=== PATIENT | male | born 1940 | race Caucasian/White ===

== ENCOUNTER 2019-06-14 16:56 | Inpatient (IN) | payer MEDICARE, OTHER ==
--- NOTE | 2019-06-14 17:14 | EDM.PDOC ---
ED HPI GENERAL MEDICAL PROBLEM - General Chief Complaint: Fever Stated Complaint: FEVER Time Seen by Provider: 06/14/19 17:13 Source of Information: Reports: Patient History Limitations: Reports: No Limitations - History of Present Illness INITIAL COMMENTS - FREE TEXT/NARRATIVE: 79-year-old male presents the ED with his daughter and granddaughter. 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 Patient has a chronic cough. He was seen yesterday in clinic and started on Zithromax tablets for pneumonia. Rarely has a chronic infiltrate in the left lung and also intermittent problems with infection in the right lower lung for the last 3-4 months. 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 He developed a fever with chills early this morning. Update high fever greater than 100.5 he would need to come to the hospital. On arrival he is definitely febrile at 101.5. He has not taken any Tylenol or Motrin for fever relief today. He states he did eat and drink normally today. No vomiting or diarrhea. No problems voiding. No worsening of edema in his lower extremities. Cough and is bringing up some clear sputum with occasional yellow tinge without any blood. He did have a flu shot this year. O2 sats upon arrival were 85%. 92-94% on 3 L by nasal cannula. Patient will have a septic workup carried out. He will be given Zyvox 600mg IV as soon as blood cultures 2 have been collected. Of note the patient has been on Cipro for 3 weeks prior to starting Zithromax yesterday. He was off antibiotic for 1 week. Apparently before this he was also on a two-week course of Cipro. Onset: Other (On a cough and sputum production for 3-4 months due to T-cell lymphoma causing obstruction of bronchi. He's had recurrent pneumonia primarily in the left lung but also has had problems with right lower lobe pneumonia over the last 3-4 months. He's been on multiple courses of antibiotics. Reverse started today. He was started on Zithromax prophylactically yesterday in clinic. ) Onset Date: 06/14/19 (At onset of fever and chills this morning.) Duration: Hour(s):, Getting Worse Location: Reports: Chest (productive cough. No pleuritic chest pain. Short of breath on minimal exertion.) Quality: Reports: Other Severity: Moderate (Dyspnea) Improves with: Reports: None Worsens with: Reports: Movement Context: Reports: Other (History of chronic pneumonia. 3-4 months due to T-cell lymphoma invading the lungs and bronchi. He has had a recurrent left-sided pneumonia and right lower lobar pneumonia intermittently.). Denies: Activity ( He is worthless trying to walk.), Exercise, Lifting, Sick Contact, Trauma Associated Symptoms: Reports: Cough, cough w sputum, Fever/Chills (Interval 101.5 today.), Malaise, Shortness of Breath, Weakness. Denies: Chest Pain, Diaphoresis (White to slightly yellow tinged sputum), Loss of Appetite, Nausea/ Vomiting, Rash, Seizure Treatments ERP ANALYST: Reports: Other (see below) (Is not taken anything for fever relief.) - Related Data Allergies Allergy/AdvReac Type Severity Reaction Status Date / Time Penicillins Allergy Unknown Rash Verified 06/14/19 17:08 Iodinated Contrast Media Allergy Rash Verified 06/14/19 17:08 potassium Allergy Diarrhea Verified 06/14/19 17:08 Sulfa (Sulfonamide Allergy Rash Verified 06/14/19 17:08 Antibiotics) Home Meds: Home Meds Aspirin 81 mg PO DAILY 06/14/19 [History] Azithromycin [Zithromax] 1 dose PO DAILY 06/14/19 [History] Levothyroxine [Synthroid] 88 mcg PO DAILY 06/14/19 [History] Potassium Gluconate [Potassium] 1 cap PO DAILY 06/14/19 [History] amLODIPine [Norvasc] 1 tab PO DAILY 06/14/19 [History] Past Medical History HEENT History: Reports: Sinusitis (Recurrent and chronic) Cardiovascular History: Reports: Other (See Below) (Dependent edema both lower extremities.) Respiratory History: Reports: Pneumonia, Recurrent, Other (See Below) ( Apparently had a bronchoscopy 2 weeks ago which 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 This was done approximately 3 months ago. States his bowel function is otherwise normal with no diarrhea.) Genitourinary History: Reports: Other (See Below) (Previous prostate cancer 4 years ago removed prostate in [place]. He has a subtotally has been normal. Denies any problems voiding. Occasional dribbles of urine.) Oncologic (Cancer) History: Reports: Lymphoma (He has a T-cell lymphoma for the last 2-1/2 years and has been receiving chemotherapy every 2-3 weeks.), Prostate (Foreign half years ago treated by prostatectomy.) - Infectious Disease History Infectious Disease History: Reports: Other (See Below) (Chronic recurrent pneumonia primarily left lung for the last 3-4 months.) Social & Family History - Tobacco Use Smoking Status *Q: Never Smoker - Living Situation & Occupation Living situation: Reports: Occupation: Retired Social History Comment: Resides in [facility] ROS GENERAL - Review of Systems Review Of Systems: See Below Constitutional: Reports: Fever, Chills, Malaise, Weakness, Fatigue, Night Sweats , Other HEENT: Reports: Sinus Problem (Álvaro of high fever and chills this morning.) Respiratory: Reports: Shortness of Breath ( Restraint age.), Wheezing, Cough, Sputum. Denies: Pleuritic Chest Pain, Hemoptysis Cardiovascular: Reports: Blood Pressure Problem, Dyspnea on Exertion (20 dependent edema both lower extremities. He wears compression stockings daily.), Edema. Denies: Chest Pain (Clear white and mildly yellow tinged.), Claudication , Lightheadedness, Orthopnea Endocrine: Reports: Fatigue ( Reticular today.) GI/Abdominal: Reports: No Symptoms. Denies: Constipation, Nausea, Vomiting : Reports: Frequency, Other (His 2 previous total prostatectomy for cancer of the prostate 4-5 years ago. Surgery carried out by Dr Rodriguez in [place]) Musculoskeletal: Reports: Neck Pain, Back Pain, Joint Pain (E Brandon shoulders at times.) Skin: Reports: Dryness, Other (Both lower extremities. Chronically in venous insufficiency with no ulcer breakdown and legs.) Neurological: Reports: No Symptoms Psychiatric: Reports: No Symptoms Hematologic/Lymphatic: Reports: Anemia, Easy Bruising ED EXAM, SEPSIS - Physical Exam Exam: See Below Exam Limited By: No Limitations (His hearing impaired but understands easily with talking loud.) General Appearance: Alert, Moderate Distress (Toxic at rest 85% room air. 92-94 % on 3 L by nasal cannula.), Other (She is febrile to touch. Temperature recorded at 37.8 Celsius. Heart rate 106 and sinus. Respiratory rate of 25 with BP 140 11/17/03.) Eye Exam: Bilateral Eye: Normal Inspection (Mild blood blepharal l pallor), PERRL Throat/Mouth: Normal Inspection, Normal Lips, Normal Oropharynx Head: Atraumatic, Normocephalic Neck: Normal Inspection, Supple, Non-Tender, Full Range of Motion, Tender Lateral. No: Carotid Bruit, Lymphadenopathy (L), Lymphadenopathy (R) Respiratory/Chest: Respiratory Distress (Kidney at the bedside with hypoxia on room air 85%.), Decreased Breath Sounds (Moderate expiratory wheezes both lung jc. Particularly to the right lung base. Questionable small pleural effusion ), Rhonchi (5 throughout both upper and lower lung jc on the left side both anteriorly and posteriorly. Rhonchi right base of lung as well.), Wheezing. No : Lungs Clear, Pleural Rub, Accessory Muscle Use, Retractions, Splinting Cardiovascular: No Murmur, No Rub, Tachycardia (105/m. Complexes on the monitor. ). No: Normal Peripheral Pulses, No Edema Peripheral Pulses: 0: Posterior Tibial (L), Posterior Tibial (R), Dorsalis Pedis (L), Dorsalis Pedis (R), 2+: Carotid (L), Carotid (R) GI/Abdominal Exam: Normal Bowel Sounds (Pedal pulses are obscured due to significant edema both lower extremities.), Soft, Non-Tender, No Organomegaly ( In particular cannot identify any splenomegaly or hepatomegaly. Is a known history of chronic lymphoma. Has a surgical midline incision from recent laparoscopic assisted colon resection for cancer 4 months ago.) Back: Normal Inspection, Decreased Range of Motion. No: CVA Tenderness (L), CVA Tenderness (R) Extremities: Pedal Edema (Her plus pitting edema both lower extremities slightly worse on the right side as compared to the left. He is wearing bilateral compression stockings.), Other (Evidence post arthritic changes in both knees.) Neurological: Alert, Oriented, CN II-XII Intact, Normal Cognition Psychiatric: Other (Gruff affect. ) Skin: Warm, Dry, Intact, Normal Color, No Rash. No: Rash EKG INTERPRETATION EKG Date: 06/14/19 Time: 17:36 Rhythm: NSR Rate (Beats/Min): 99 (Wide-complex's.) [place]: RAD-Right [place] Deviation P-Wave: Enlarged QRS: Other (Left anterior fascicular block.) ST-T: Normal QT: Prolonged (Moderately prolonged) EKG Interpretation Comments: Abnormal ECG Course - Vital Signs Last Recorded V/S: Last Vital Signs Temp 38.9 C H 06/14/19 18:10 Pulse 106 H 06/14/19 17:06 Resp 25 H 06/14/19 17:06 BP 146/104 H 06/14/19 17:06 Pulse Ox 87 L 06/14/19 17:06 - Orders/Labs/Meds Orders: Active Orders 24 hr Category Date Time Status EKG Documentation Completion [RC] STAT Care 06/14/19 17:28 Active Implanted Port Access [RC] DAILY Care 06/14/19 17:57 Active Oxygen Therapy [RC] ASDIRECTED Care 06/14/19 17:28 Active Chest 1V Frontal [CR] Stat Exams 06/14/19 17:29 Taken CULTURE BLOOD [BC] Stat Lab 06/14/19 17:15 Received CULTURE BLOOD [BC] Stat Lab 06/14/19 17:15 Received Dextrose 5%-0.9% NaCl [Dextrose 5%-Normal Saline] 1,000 Med 06/14/19 17:30 Active ml IV ASDIRECTED Blood Culture x2 Reflex Set [OM.PC] Stat Oth 06/14/19 17:30 Ordered Medication Orders Dextrose/Sodium Chloride (Dextrose 5%-Normal Saline) 1,000 mls @ 75 mls/hr IV ASDIRECTED FELY Last Admin: 06/14/19 18:08 Dose: 75 mls/hr Labs: Laboratory Tests 06/14/19 06/14/19 06/14/19 Range/Units 17:15 17:15 17:15 WBC (4.23-9.07) K/mm3 RBC (4.63-6.08) M/mm3 Hgb (13.7-17.5) gm/dl Hct (40.1-51.0) % MCV (79.0-92.2) fl MCH (25.7-32.2) pg MCHC (32.2-35.5) g/dl RDW Std Deviation (35.1-43.9) fL Plt Count (163-337) K/mm3 MPV (9.4-12.3) fl Neutrophils % (Manual) (40-60) % Band Neutrophils % (0-10) % Lymphocytes % (Manual) (20-40) % Atypical Lymphs % % Monocytes % (Manual) (2-10) % Eosinophils % (Manual) (0.8-7.0) % Basophils % (Manual) (0.2-1.2) Toxic Granulation Platelet Estimate Hypochromasia Anisocytosis Microcytosis Tear Drop Cells Ovalocytes RBC Morph Comment ESR 22 H (0-15) mm/hr PT (9.7-12.0) SECONDS INR APTT (22-31) SECONDS Sodium 140 (136-145) mEq/L Potassium 3.4 L (3.5-5.1) mEq/L Chloride 104 (98-107) mEq/L Carbon Dioxide 28 (21-32) mEq/L Anion Gap 11.4 (5-15) BUN 17 (7-18) mg/dL Creatinine 1.1 (0.7-1.3) mg/dL Est Cr Clr Drug Dosing 62.27 mL/min Estimated GFR (MDRD) > 60 (>60) mL/min BUN/Creatinine Ratio 15.5 (14-18) Glucose 132 H (83-115) mg/dL Calcium 8.5 (8.5-10.1) mg/dL Magnesium 1.8 (1.8-2.4) mg/dl Total Bilirubin 0.9 (0.2-1.0) mg/dL AST 9 L (15-37) U/L ALT 14 L (16-63) U/L Alkaline Phosphatase 178 H (46-116) U/L Troponin I < 0.017 (0.00-0.056) ng/mL NT-Pro-B Natriuret Pep 574 H (0-450) pg/mL Total Protein 6.1 L (6.4-8.2) g/dl Albumin 2.9 L (3.4-5.0) g/dl Globulin 3.2 gm/dL Albumin/Globulin Ratio 0.9 L (1-2) 06/14/19 06/14/19 Range/Units 17:55 17:55 WBC 21.12 H (4.23-9.07) K/mm3 RBC 4.52 L (4.63-6.08) M/mm3 Hgb 11.0 L (13.7-17.5) gm/dl Hct 35.5 L (40.1-51.0) % MCV 78.5 L (79.0-92.2) fl MCH 24.3 L (25.7-32.2) pg MCHC 31.0 L (32.2-35.5) g/dl RDW Std Deviation 55.8 H (35.1-43.9) fL Plt Count 190 (163-337) K/mm3 MPV 8.9 L (9.4-12.3) fl Neutrophils % (Manual) 83 H (40-60) % Band Neutrophils % 2 (0-10) % Lymphocytes % (Manual) 6 L (20-40) % Atypical Lymphs % 0 % Monocytes % (Manual) 9 (2-10) % Eosinophils % (Manual) 0 L (0.8-7.0) % Basophils % (Manual) 0 L (0.2-1.2) Toxic Granulation Moderate Platelet Estimate Adequate Hypochromasia 1+ slight Anisocytosis 1+ slight Microcytosis 1+ slight Tear Drop Cells Few Ovalocytes 1+ slight RBC Morph Comment Not Reportable ESR (0-15) mm/hr PT 13.8 H (9.7-12.0) SECONDS INR 1.28 APTT 35 H (22-31) SECONDS Sodium (136-145) mEq/L Potassium (3.5-5.1) mEq/L Chloride (98-107) mEq/L Carbon Dioxide (21-32) mEq/L Anion Gap (5-15) BUN (7-18) mg/dL Creatinine (0.7-1.3) mg/dL Est Cr Clr Drug Dosing mL/min Estimated GFR (MDRD) (>60) mL/min BUN/Creatinine Ratio (14-18) Glucose (83-115) mg/dL Calcium (8.5-10.1) mg/dL Magnesium (1.8-2.4) mg/dl Total Bilirubin (0.2-1.0) mg/dL AST (15-37) U/L ALT (16-63) U/L Alkaline Phosphatase (46-116) U/L Troponin I (0.00-0.056) ng/mL NT-Pro-B Natriuret Pep (0-450) pg/mL Total Protein (6.4-8.2) g/dl Albumin (3.4-5.0) g/dl Globulin gm/dL Albumin/Globulin Ratio (1-2) Meds: Medications Generic Name Dose Route Start Last Admin Trade Name Karl PRN Reason Stop Dose Admin Dextrose/Sodium Chloride 1,000 mls @ 75 mls/hr 06/14/19 17:30 06/14/19 18:08 Dextrose 5%-Normal Saline IV 75 mls/hr ASDIRECTED FELY Administration Discontinued Medications Generic Name Dose Route Start Last Admin Trade Name Rowdyq PRN Reason Stop Dose Admin Acetaminophen 975 mg 06/14/19 17:27 06/14/19 18:10 Tylenol PO 06/14/19 17:28 975 mg NOW ONE Administration Linezolid 600 mg/ Premix 300 mls @ 300 mls/hr 06/14/19 17:52 06/14/19 18:09 IV 06/14/19 18:51 300 mls/hr ONETIME ONE Administration - Radiology Interpretation Free Text/Narrative:: 79-year-old male presents the ED with acute onset of fever and chills this morning. History is complicated as he has had colon cancer 3 and half months ago and had a colon resection done through laparoscopic assist and midline laparotomy. Is unclear which side of the colon was excised weeks size. History of prostate cancer with a prostatectomy done a prostate 4-1/2 years ago. Apparently PSA values have remained normal. He's been battling a T-cell lymphoma for the last 2 and half years and is receiving chemotherapy every 2 weeks. For the last 4 months she's had chronic infection in his left lung and occasional pneumonia right lower lobe as w Therefore multiple course of antibiotics due to infection that would not clear up. 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 He was seen in the clinic yesterday and started on Zithromax 500 mg orally. He finished a 3 week course of Cipro 500 mg twice a day a week prior to starting Zithromax. Prior to this he had taken a 2 week course of Cipro. Prior to that he been on other antibioticsHe presents febrile and has not taken any medication for fever relief. Given Tylenol 975 mg in the ED. On room air 85-87% and started on oxygen 3 L/m to achieve O2 sats of 92-94%. He has very productive cough and diffuse rhonchi throughout all lobes on the left side and right lung base. Dullness to percussion on the right side suggests a small pleural effusion. He has no history of congestive heart failure. No history of myocardial infarction. Patient did not have a fever yesterday and therefore did not have a influenza screen. Septic workup carried in the ED as well as an influenza screen. Soon as blood cultures 2 are done he will receive Zyvox 600 mg IV. - Re-Assessments/Exams Free Text/Narrative Re-Assessment/Exam: 06/14/19 17:59 One view portable chest x-ray reveals an infiltrate right lower lobe and a diffuse interstitial fibrosis pattern left lower lobe. No pleural effusions Cardiac silhouette is upper limits of normal. 06/14/19 18:23 White count is elevated at 21.12. Hemoglobin slightly low 11.0 with hematocrit of 35.5. MCV slightly low at 78.5. Platelet count normal 190, 000. Differential pending 06/14/19 18:36 Differential on the white count is 83% neutrophils and 2% bands with 6% lymphocytes. There is a moderate toxic granulation pattern on the slide. There is 1+ hypochromasia. 1+ anisocytosis and 1+ microcytosis with a few teardrop cells suggesting splenomegaly. Is also 1+ slight ovalocytes appreciated. PT was 13.8 with an INR elevated at 1.28. PTT is 35 also mildly elevated. 06/14/19 19:01 Chemistry is now back revealing a sodium of 140 potassium slightly low at 3.4. Chloride is 1043 bicarbonate 28. Anion gap is normal at 11.4. BUN is 17 with a creatinine of 1.1. GFR remains greater than 60. Glucose is slightly elevated 132. Calcium is 8.5 with a magnesium of 1.8. Bilirubin is 0.9 AST is 9 ALT is 14 and alk phosphatase slightly elevated 178. Troponin I is less than 0.017. BNP is mildly elevated at 574. Total protein is 6.1. Albumin fraction is low at 2.9. Patient has not yet voided. I will discuss case with electronics technician hospitalist with a view to admission to med surgery floor for treatment of suspect pneumonia with mild congestive heart failure and hypoxia requiring oxygen supplementation. Influenza screen is negative. 06/14/19 19:20 I have Discussed the findings with the patient and he agrees to admission to the hospital as he will need oxygen support until we clear up some of his pneumonia. I have also discussed the patient with Dr. Martínez electronics technician hospitalist. We will cover him with meropenem to ride Pseudomonas average. Departure - Departure Time of Disposition: 19:35 Disposition: Admitted As Inpatient 65 Condition: Fair Clinical Impression: Hypoxia, Acute febrile illness Bilateral pneumonia Qualifiers: Pneumonia type: due to unspecified organism Lung location: lower lobe of lung Qualified Code(s): J18.9 - Pneumonia, unspecified organism - Discharge Information *PRESCRIPTION DRUG MONITORING PROGRAM REVIEWED*: Not Applicable *COPY OF PRESCRIPTION DRUG MONITORING REPORT IN PATIENT [place]: Not Applicable Instructions: Hypoxemia, Fever, Adult Referrals: Ki Obrien MD [Primary Care Provider] - Forms: ED Department Discharge Sepsis Event Note - Evaluation Sepsis Screening Result: No Definite Risk - Focused Exam Vital Signs: Vital Signs Temp Temp Pulse Resp BP Pulse Ox 06/14/19 18:10 38.9 C H 06/14/19 17:06 37.8 C 106 H 25 H 146/104 H 87 L Date Exam was Performed: 06/14/19 Time Exam was Performed: 19:20 - My Orders Last 24 Hours: My Active Orders 06/14/19 17:15 CULTURE BLOOD [BC] Stat CULTURE BLOOD [BC] Stat 06/14/19 17:28 EKG Documentation Completion [RC] STAT Oxygen Therapy [RC] ASDIRECTED 06/14/19 17:29 Chest 1V Frontal [CR] Stat 06/14/19 17:30 Dextrose 5%-0.9% NaCl [Dextrose 5%-Normal Saline] 1,000 ml IV ASDIRECTED Blood Culture x2 Reflex Set [OM.PC] Stat 06/14/19 17:57 Implanted Port Access [RC] DAILY - Assessment/Plan Last 24 Hours: My Active Orders 06/14/19 17:15 CULTURE BLOOD [BC] Stat CULTURE BLOOD [BC] Stat 06/14/19 17:28 EKG Documentation Completion [RC] STAT Oxygen Therapy [RC] ASDIRECTED 06/14/19 17:29 Chest 1V Frontal [CR] Stat 06/14/19 17:30 Dextrose 5%-0.9% NaCl [Dextrose 5%-Normal Saline] 1,000 ml IV ASDIRECTED Blood Culture x2 Reflex Set [OM.PC] Stat 06/14/19 17:57 Implanted Port Access [RC] DAILY
[2019-06-14] MEDS ORDERED: Acetaminophen 325 MG Tab PO ONE (17:27)
[2019-06-14] MEDS ORDERED: Dextrose 5%-0.9% NaCl 1,000 ML IV SCH (17:30)
[2019-06-14] MEDS ORDERED: Linezolid 600 MG in Premix Bag 1 BAG IV ONE (17:52)
[2019-06-14] MEDS ORDERED: Meropenem 1 GM SDV IVPUSH ONE (19:37)
[2019-06-14] MEDS ORDERED: Ondansetron 4 MG/2 ML SDV IV PRN (20:48)
[2019-06-14] MEDS ORDERED: Ibuprofen 600 MG Tab PO PRN (20:48)
[2019-06-14] MEDS ORDERED: Albuterol 0.083% 2.5 MG/3 ML Neb Soln NEB PRN (20:48)
[2019-06-14] MEDS ORDERED: Melatonin 3 MG Tab PO PRN (20:50)
--- NOTE | 2019-06-14 21:04 | PCM.HP.2 ---
H&P History of Present Illness - General Date of Service: 06/14/19 Admit Problem/Dx: Admission Diagnosis/Problem Admission Diagnosis/Problem Acute febrile illness - History of Present Illness Initial Comments - Free Text/Narative: Patient comes in today after having a fever kelsey 100.5 today. Patient has a history of lymphoma and chronic left lower lobe pneumonia. Duong was hospitalized at [facility] in [place] approximately 3 months ago with pneumonia. He states he was there for 1 week and went home on antibiotics. He has been on ciprofloxacin since then and every time he stops it he seems to get sick again. He states he has been on it for approximately 3 weeks in total. Yesterday he was seen at the clinic and diagnosed with pneumonia. He was given azithromycin. He was told by his provider that if he developed a fever to go to the hospital. Patient states he had a bronchoscopy approximately 3 weeks ago , but has not been given the results and has not followed up. Dr. Albert was the sample book maker. Patient was diagnosed with lymphoma 2 and half years ago. This first started lump on his left leg. Recently patient was diagnosed with mass on his colon. He did have surgery for excision. He does not know what exactly that was. This happened in March or April. He has been getting chemotherapy every 2 weeks and his next dose of chemotherapy is in 3 days. When the patient arrived in the emergency room his oxygen saturations were 85% and they got up to 96 to 94% on 3 L nasal cannula. He had a fever of 101.5. Patient had a septic work-up, which was negative, and he was given Zyvox 600 mg IV. Blood cultures x2 were collected. I was contacted this point and I recommended coverage for Pseudomonas. Patient was given meropenem. Lab work in the emergency room: WBC 21, hemoglobin 11, platelet count 190, toxic granulation, INR 1.28 and APTT 35 with a PT 13.8. ESR 22, no anion gap. Troponin was less than 0.017 with a proBNP of 574. Sodium 140, potassium 3.4, chloride 104, carbon dioxide 28, BUN 17, creatinine of 1.1, AST 9, ALT 14, alkaline phosphatase 178. Chest x-ray showed diffuse interstitial fibrosis with left lower lobe pneumonia. There might be a small right lower lobe pneumonia there. Bronchoscopy results from May 27, 2019 are available: Lung, left lower, bronchioloalveolar lavage: Atypical lymphocytic infiltrate present. 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 No AFB seen. Culture results normal respiratory corina with many WBCs negative culture for acid-fast bacillus, no fungal growth, negative CMV PCR, negative for herpes simplex type I and II. Impression: Atelectasis of the left lower lobe Unresolving left lower lobe infiltrate Copious, white, thick secretions were found in the left lower lobe. Notable, white, thick secretions were found in the superior lingular segment of the left upper lobe and in the inferior lingular segment of the left upper lobe. Notable, white, thick secretions were found in the superior segment of the right lower lobe, in the medial basal segment of the right lower lobe, in the anterior basal segment of the right lower lobe, and the lateral basal segment of the right lower lobe, and in the posterior basal segment of the right lower lobe. The findings are suspicious for bacterial pneumonia. Findings are suspicious for community acquired pneumonia. - Related Data Allergies/Adverse Reactions: Allergies Allergy/AdvReac Type Severity Reaction Status Date / Time Penicillins Allergy Unknown Rash Verified 06/14/19 17:08 Iodinated Contrast Media Allergy Rash Verified 06/14/19 17:08 potassium Allergy Diarrhea Verified 06/14/19 17:08 Sulfa (Sulfonamide Allergy Rash Verified 06/14/19 17:08 Antibiotics) Home Medications: Home Meds Aspirin 81 mg PO DAILY 06/14/19 [History] Levothyroxine [Synthroid] 88 mcg PO DAILY 06/14/19 [History] Azithromycin 1 tab PO DAILY 06/15/19 [History] Potassium Chloride 20 meq PO DAILY 06/15/19 [History] amLODIPine [Norvasc] 1 tab PO DAILY 06/15/19 [History] Past Medical History HEENT History: Reports: Sinusitis (Recurrent and chronic) Other HEENT History: glasses Cardiovascular History: Reports: Other (See Below) (Dependent edema both lower extremities.) Respiratory History: Reports: Pneumonia, Recurrent, Other (See Below) ( Apparently had a bronchoscopy 2 weeks ago which 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 This was done approximately 3 months ago. States his bowel function is otherwise normal with no diarrhea.) Genitourinary History: Reports: Other (See Below) (Previous prostate cancer 4 years ago removed prostate in [place]. He has a subtotally has been normal. Denies any problems voiding. 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 and has been receiving chemotherapy every 2-3 weeks.), Prostate (Foreign half years ago treated by prostatectomy.) - Infectious Disease History Infectious Disease History: Reports: Other (See Below) (Chronic recurrent pneumonia primarily left lung for the last 3-4 months.) - Past Surgical History HEENT Surgical History: Reports: Tonsillectomy GI Surgical History: Reports: Appendectomy Social & Family History - Tobacco Use Smoking Status *Q: Never Smoker Second Hand Smoke Exposure: No - Caffeine Use Caffeine Use: Reports: None - Recreational Drug Use Recreational Drug Use: No - Living Situation & Occupation Living situation: Reports: Occupation: Retired H&P Review of Systems - Review of Systems: Review Of Systems: Comprehensive ROS is negative, except as noted in HPI. Exam - Exam Exam: See Below - Vital Signs Vital Signs: Last Vital Signs Temp 98.9 F 06/14/19 19:56 Pulse 106 H 06/14/19 17:06 Resp 25 H 06/14/19 17:06 BP 146/104 H 06/14/19 17:06 Pulse Ox 87 L 06/14/19 17:06 Weight: 210 lb - Exam Quality Assessment: Supplemental Oxygen General: Alert, Oriented, 4 HEENT: Conjunctiva Clear, EOMI, Hearing Intact, Mucosa Moist & [place] Neck: Supple, Trachea Midline, 2 Lungs: Normal Respiratory Effort, Rhonchi (Bibasilar) Cardiovascular: Regular Rate, Regular Rhythm, Normal S1, Normal S2 GI/Abdominal Exam: Normal Bowel Sounds, Soft, Non-Tender, No Organomegaly, No Distention, No Abnormal Bruit, No Mass, Pelvis Stable Back Exam: Normal Inspection Extremities: Normal Inspection, Normal Range of Motion, Non-Tender, No Pedal Edema, Normal Capillary Refill Skin: Warm Neurological: Cranial Nerves Intact Neuro Extensive - Mental Status: Alert, Oriented x3, Normal Mood/Affect, Normal Cognition, Memory Intact Neuro Extensive - Motor, Sensory, Reflexes: CN II-XII Intact Psychiatric: Alert, Normal Affect, Normal Mood - Patient Data Lab Results Last 24 hrs: Laboratory Results - last 24 hr 06/14/19 06/14/19 06/14/19 Range/Units 17:15 17:15 17:15 WBC (4.23-9.07) K/mm3 RBC (4.63-6.08) M/mm3 Hgb (13.7-17.5) gm/dl Hct (40.1-51.0) % MCV (79.0-92.2) fl MCH (25.7-32.2) pg MCHC (32.2-35.5) g/dl RDW Std Deviation (35.1-43.9) fL Plt Count (163-337) K/mm3 MPV (9.4-12.3) fl Neutrophils % (Manual) (40-60) % Band Neutrophils % (0-10) % Lymphocytes % (Manual) (20-40) % Atypical Lymphs % % Monocytes % (Manual) (2-10) % Eosinophils % (Manual) (0.8-7.0) % Basophils % (Manual) (0.2-1.2) Toxic Granulation Platelet Estimate Hypochromasia Anisocytosis Microcytosis Tear Drop Cells Ovalocytes RBC Morph Comment ESR 22 H (0-15) mm/hr PT (9.7-12.0) SECONDS INR APTT (22-31) SECONDS Sodium 140 (136-145) mEq/L Potassium 3.4 L (3.5-5.1) mEq/L Chloride 104 (98-107) mEq/L Carbon Dioxide 28 (21-32) mEq/L Anion Gap 11.4 (5-15) BUN 17 (7-18) mg/dL Creatinine 1.1 (0.7-1.3) mg/dL Est Cr Clr Drug Dosing 62.27 mL/min Estimated GFR (MDRD) > 60 (>60) mL/min BUN/Creatinine Ratio 15.5 (14-18) Glucose 132 H (83-115) mg/dL Calcium 8.5 (8.5-10.1) mg/dL Magnesium 1.8 (1.8-2.4) mg/dl Total Bilirubin 0.9 (0.2-1.0) mg/dL AST 9 L (15-37) U/L ALT 14 L (16-63) U/L Alkaline Phosphatase 178 H (46-116) U/L Troponin I < 0.017 (0.00-0.056) ng/mL NT-Pro-B Natriuret Pep 574 H (0-450) pg/mL Total Protein 6.1 L (6.4-8.2) g/dl Albumin 2.9 L (3.4-5.0) g/dl Globulin 3.2 gm/dL Albumin/Globulin Ratio 0.9 L (1-2) 06/14/19 06/14/19 Range/Units 17:55 17:55 WBC 21.12 H (4.23-9.07) K/mm3 RBC 4.52 L (4.63-6.08) M/mm3 Hgb 11.0 L (13.7-17.5) gm/dl Hct 35.5 L (40.1-51.0) % MCV 78.5 L (79.0-92.2) fl MCH 24.3 L (25.7-32.2) pg MCHC 31.0 L (32.2-35.5) g/dl RDW Std Deviation 55.8 H (35.1-43.9) fL Plt Count 190 (163-337) K/mm3 MPV 8.9 L (9.4-12.3) fl Neutrophils % (Manual) 83 H (40-60) % Band Neutrophils % 2 (0-10) % Lymphocytes % (Manual) 6 L (20-40) % Atypical Lymphs % 0 % Monocytes % (Manual) 9 (2-10) % Eosinophils % (Manual) 0 L (0.8-7.0) % Basophils % (Manual) 0 L (0.2-1.2) Toxic Granulation Moderate Platelet Estimate Adequate Hypochromasia 1+ slight Anisocytosis 1+ slight Microcytosis 1+ slight Tear Drop Cells Few Ovalocytes 1+ slight RBC Morph Comment Not Reportable ESR (0-15) mm/hr PT 13.8 H (9.7-12.0) SECONDS INR 1.28 APTT 35 H (22-31) SECONDS Sodium (136-145) mEq/L Potassium (3.5-5.1) mEq/L Chloride (98-107) mEq/L Carbon Dioxide (21-32) mEq/L Anion Gap (5-15) BUN (7-18) mg/dL Creatinine (0.7-1.3) mg/dL Est Cr Clr Drug Dosing mL/min Estimated GFR (MDRD) (>60) mL/min BUN/Creatinine Ratio (14-18) Glucose (83-115) mg/dL Calcium (8.5-10.1) mg/dL Magnesium (1.8-2.4) mg/dl Total Bilirubin (0.2-1.0) mg/dL AST (15-37) U/L ALT (16-63) U/L Alkaline Phosphatase (46-116) U/L Troponin I (0.00-0.056) ng/mL NT-Pro-B Natriuret Pep (0-450) pg/mL Total Protein (6.4-8.2) g/dl Albumin (3.4-5.0) g/dl Globulin gm/dL Albumin/Globulin Ratio (1-2) Result Diagrams: 06/15/19 04:10 06/15/19 04:10 Handy Results Last 24 hrs: Microbiology 06/14/19 18:07 Influenza Type A Antigen Screen - Final Nasal Aspirate, Unspecified NEGATIVE INFLUENZA A VIRUS AG REFERENCE RANGE: NEGATIVE Influenza Type B Antigen Screen - Final NEGATIVE INFLUENZA B VIRUS AG REFERENCE RANGE: NEGATIVE EKG INTERPRETATION EKG Date: 06/14/19 Rhythm: NSR Rate (Beats/Min): 99 [place]: Other (indeterminate axis) P-Wave: Present QRS: RBBB EKG Interpretation Comments: LAHB. Qtc prolonged. LATHA Sepsis Event Note - Evaluation Sepsis Screening Result: No Definite Risk - Focused Exam Vital Signs: Vital Signs Temp Temp Pulse Resp BP Pulse Ox 06/14/19 19:56 98.9 F 06/14/19 18:10 102.1 F H 06/14/19 17:06 100.1 F 106 H 25 H 146/104 H 87 L Date Exam was Performed: 06/15/19 Time Exam was Performed: 14:54 Problem List Initiated/Reviewed/Updated: Yes Orders Last 24hrs: Active Orders 24 hr Category Date Time Status Admission Status [Patient Status] [ADT] Routine ADT 06/14/19 19:36 Active EKG Documentation Completion [RC] STAT Care 06/14/19 17:28 Active Implanted Port Access [RC] DAILY Care 06/14/19 17:57 Active Oxygen Therapy [RC] ASDIRECTED Care 06/14/19 17:28 Active Oxygen Therapy [RC] PRN Care 06/14/19 20:48 Ordered RT Aerosol Therapy [RC] ASDIRECTED Care 06/14/19 20:51 Ordered RT Chest Physiotherapy [RC] ASDIRECTED Care 06/14/19 20:54 Ordered Up ad Cecilia [RC] ASDIRECTED Care 06/14/19 20:48 Ordered VTE/DVT Education [RC] PER UNIT ROUTINE Care 06/14/19 20:48 Ordered Vital Signs [RC] Q4H Care 06/14/19 20:48 Ordered Respiratory Care Assess and Treatment [CONS] Routine Cons 06/14/19 20:50 Ordered Regular Diet [DIET] Diet 06/15/19 Breakfast Ordered Chest 1V Frontal [CR] Stat Exams 06/14/19 17:29 Taken C-REACTIVE PROTEIN [CHEM] AM Lab 06/18/19 05:11 Ordered C-REACTIVE PROTEIN [CHEM] AM Lab 06/15/19 05:11 Ordered C-REACTIVE PROTEIN [CHEM] AM Lab 06/16/19 05:11 Ordered C-REACTIVE PROTEIN [CHEM] AM Lab 06/17/19 05:11 Ordered CBC WITH AUTO DIFF [HEME] AM Lab 06/18/19 05:11 Ordered CBC WITH AUTO DIFF [HEME] AM Lab 06/15/19 05:11 Ordered CBC WITH AUTO DIFF [HEME] AM Lab 06/16/19 05:11 Ordered CBC WITH AUTO DIFF [HEME] AM Lab 06/17/19 05:11 Ordered COMPREHENSIVE METABOLIC PN,CMP [CHEM] AM Lab 06/18/19 05:11 Ordered COMPREHENSIVE METABOLIC PN,CMP [CHEM] AM Lab 06/15/19 05:11 Ordered COMPREHENSIVE METABOLIC PN,CMP [CHEM] AM Lab 06/16/19 05:11 Ordered COMPREHENSIVE METABOLIC PN,CMP [CHEM] AM Lab 06/17/19 05:11 Ordered CULTURE BLOOD [BC] Stat Lab 06/14/19 17:15 Received CULTURE BLOOD [BC] Stat Lab 06/14/19 17:15 Received LEGIONELLA ANTIGEN [MREF] Routine Lab 06/14/19 20:53 Ordered MAGNESIUM [CHEM] AM Lab 06/18/19 05:11 Ordered MAGNESIUM [CHEM] AM Lab 06/15/19 05:11 Ordered MAGNESIUM [CHEM] AM Lab 06/16/19 05:11 Ordered MAGNESIUM [CHEM] AM Lab 06/17/19 05:11 Ordered PROCALCITONIN [REF] Routine Lab 06/14/19 20:27 Ordered RESPIRATORY PANEL Routine Lab 06/14/19 20:53 Ordered STREP PNEUMONIAE ANTIGEN [MREF] Routine Lab 06/14/19 20:53 Ordered Acetaminophen [Tylenol] Med 06/14/19 20:48 Ordered 650 mg PO Q4H PRN Albuterol [Proventil Neb Soln] Med 06/14/19 20:48 Ordered 2.5 mg NEB Q2H PRN Aspirin Med 06/15/19 09:00 Ordered 81 mg PO DAILY Dextrose 5%-0.9% NaCl [Dextrose 5%-Normal Saline] 1,000 Med 06/14/19 17:30 Active ml IV ASDIRECTED Enoxaparin [Lovenox] Med 06/15/19 09:00 Ordered 40 mg SUBCUT DAILY Ibuprofen [Motrin] Med 06/14/19 20:48 Ordered 600 mg PO Q6H PRN Levothyroxine [Synthroid] Med 06/15/19 09:00 Ordered 88 mcg PO DAILY Melatonin Med 06/14/19 20:50 Ordered 9 mg PO BEDTIME PRN Ondansetron [Zofran] Med 06/14/19 20:48 Ordered 4 mg IV Q4H PRN Blood Culture x2 Reflex Set [OM.PC] Stat Oth 06/14/19 17:30 Ordered Resuscitation Status Routine Resus Stat 06/14/19 20:48 Ordered Medication Orders Acetaminophen (Tylenol) 650 mg PO Q4H PRN PRN Reason: Pain (Mild 1-3)/fever Albuterol (Proventil Neb Soln) 2.5 mg NEB Q2H PRN PRN Reason: Shortness Of Breath/wheezing Aspirin (Aspirin) 81 mg PO DAILY FELY Enoxaparin Sodium (Lovenox) 40 mg SUBCUT DAILY FELY Dextrose/Sodium Chloride (Dextrose 5%-Normal Saline) 1,000 mls @ 75 mls/hr IV ASDIRECTED FELY Last Admin: 06/14/19 18:08 Dose: 75 mls/hr Ibuprofen (Motrin) 600 mg PO Q6H PRN PRN Reason: Pain (moderate 4-6) Levothyroxine Sodium (Synthroid) 88 mcg PO DAILY FELY Melatonin (Melatonin) 9 mg PO BEDTIME PRN PRN Reason: Insomnia Ondansetron HCl (Zofran) 4 mg IV Q4H PRN PRN Reason: Nausea/Vomiting Assessment/Plan Comment:: Assessment * Bibasilar pneumonia, acute on chronic, possible obstructive * WBC 21, negative anion gap, ESR 22, chest x-ray consistent with pneumonia * Recent bronchoscopy on May 27, 2019 with negative cultures. Likely consistent with lymphoma. chronic inflammation and involvement of the patient's history of mantle cell lymphoma. Secretions were causing partial obstruction of the left lower bronchus. * Patient has been on ciprofloxacin and azithromycin recently increasing likelihood for resistance. * Mantle cell lymphoma with history of recent colon mass and resection in March or April of this year. * Chemotherapy every 2 weeks and next dose due on June 17 * History of hypertension and hypothyroidism Plan * Admit to floor * FiO2 to keep SPO2 above 90%. * Vancomycin and meropenem to cover MRSA and Pseudomonas. * RT and physiotherapy. * Albuterol nebulizer as needed every 2 hours * CBC, CMP, mag, C-reactive protein daily * Reconcile home meds. * VTE prophylaxis with Lovenox * CODE STATUS: Full code * Length of stay likely 4 or more more days. - Mortality Measure Prognosis:: Poor
[2019-06-14] MEDS ORDERED: Meropenem Premix 500 MG in Premix Bag 1 BAG IV SCH (22:00)
[2019-06-14] MEDS ORDERED: hydrALAZINE 20 MG/ML SDV IVPUSH PRN (22:03)
[2019-06-14] MEDS ORDERED: Vancomycin 1.75 GM in Sodium Chloride 0.9% 500 ML IV ONE (22:30)
[2019-06-15] MEDS ORDERED: Meropenem 1 GM SDV IVPUSH SCH (02:30)
[2019-06-15] MEDS: Levothyroxine 88 MCG Tab PO SCH (05:28)
[2019-06-15] MEDS: Acetaminophen 325 MG Tab PO PRN ×2 (05:28→16:18)
[2019-06-15] MEDS: Meropenem Premix 500 MG in Premix Bag 1 BAG IV SCH ×4 (05:29→21:38)
[2019-06-15] MEDS: Aspirin 81 MG Tab.Chew PO SCH (08:10)
[2019-06-15] MEDS: Enoxaparin 40 MG/0.4 ML Syringe SUBCUT SCH (08:11)
[2019-06-15] MEDS ORDERED: Potassium Chloride 10% 20 MEQ/15 ML Soln 15 ML UD Cup PO ONE (11:33)
[2019-06-15] MEDS: amLODIPine 5 MG Tab PO SCH (12:19)
[2019-06-15] MEDS: Vancomycin 1 GM in Sodium Chloride 0.9% 100 ML IV SCH ×2 (12:27→23:09)
--- NOTE | 2019-06-15 15:14 | PCM.PN ---
- General Info Date of Service: 06/15/19 Admission Dx/Problem (Free Text): Admission Diagnosis/Problem Admission Diagnosis/Problem Acute febrile illness Subjective Update: Patient had another fever overnight. He continues to have thick secretions. Functional Status: Reports: Pain Controlled - Review of Systems General: Reports: Fever HEENT: Reports: No Symptoms Pulmonary: Reports: Cough, Sputum Cardiovascular: Reports: No Symptoms Gastrointestinal: Reports: No Symptoms - Patient Data Vitals - Most Recent: Last Vital Signs Temp 98.4 F 06/15/19 08:08 Pulse 85 06/15/19 08:08 Resp 18 06/15/19 08:08 BP 127/98 H 06/15/19 12: Pulse Ox 92 L 06/15/19 08:58 Weight - Most Recent: 210 lb I&O - Last 24 Hours: Intake & Output 06/15/19 06/15/19 06/15/19 06:59 14:59 22:59 Intake Total 1000 240 Output Total 800 Balance 200 240 Lab Results Last 24 Hours: Laboratory Results - last 24 hr 06/14/19 06/14/19 06/14/19 Range/Units 17:15 17:15 17:15 WBC (4.23-9.07) K/mm3 RBC (4.63-6.08) M/mm3 Hgb (13.7-17.5) gm/dl Hct (40.1-51.0) % MCV (79.0-92.2) fl MCH (25.7-32.2) pg MCHC (32.2-35.5) g/dl RDW Std Deviation (35.1-43.9) fL Plt Count (163-337) K/mm3 MPV (9.4-12.3) fl Neut % (Auto) (34.0-67.9) % Lymph % (Auto) (21.8-53.1) % Hayes % (Auto) (5.3-12.2) % Eos % (Auto) (0.8-7.0) Baso % (Auto) (0.1-1.2) % Neut # (Auto) (1.78-5.38) K/mm3 Lymph # (Auto) (1.32-3.57) K/mm3 Hayes # (Auto) (0.30-0.82) K/mm3 Eos # (Auto) (0.04-0.54) K/mm3 Baso # (Auto) (0.01-0.08) K/mm3 Neutrophils % (Manual) (40-60) % Band Neutrophils % (0-10) % Lymphocytes % (Manual) (20-40) % Atypical Lymphs % % Monocytes % (Manual) (2-10) % Eosinophils % (Manual) (0.8-7.0) % Basophils % (Manual) (0.2-1.2) Manual Slide Review Toxic Granulation Platelet Estimate Hypochromasia Anisocytosis Microcytosis Tear Drop Cells Ovalocytes RBC Morph Comment ESR 22 H (0-15) mm/hr PT (9.7-12.0) SECONDS INR APTT (22-31) SECONDS Sodium 140 (136-145) mEq/L Potassium 3.4 L (3.5-5.1) mEq/L Chloride 104 (98-107) mEq/L Carbon Dioxide 28 (21-32) mEq/L Anion Gap 11.4 (5-15) BUN 17 (7-18) mg/dL Creatinine 1.1 (0.7-1.3) mg/dL Est Cr Clr Drug Dosing 62.27 mL/min Estimated GFR (MDRD) > 60 (>60) mL/min BUN/Creatinine Ratio 15.5 (14-18) Glucose 132 H (83-115) mg/dL Calcium 8.5 (8.5-10.1) mg/dL Magnesium 1.8 (1.8-2.4) mg/dl Total Bilirubin 0.9 (0.2-1.0) mg/dL AST 9 L (15-37) U/L ALT 14 L (16-63) U/L Alkaline Phosphatase 178 H (46-116) U/L Troponin I < 0.017 (0.00-0.056) ng/mL C-Reactive Protein (<1.0) mg/dL NT-Pro-B Natriuret Pep 574 H (0-450) pg/mL Total Protein 6.1 L (6.4-8.2) g/dl Albumin 2.9 L (3.4-5.0) g/dl Globulin 3.2 gm/dL Albumin/Globulin Ratio 0.9 L (1-2) 06/14/19 06/14/19 06/15/19 Range/Units 17:55 17:55 04:10 WBC 21.12 H 15.13 H (4.23-9.07) K/mm3 RBC 4.52 L 4.26 L (4.63-6.08) M/mm3 Hgb 11.0 L 10.2 L (13.7-17.5) gm/dl Hct 35.5 L 34.0 L (40.1-51.0) % MCV 78.5 L 79.8 (79.0-92.2) fl MCH 24.3 L 23.9 L (25.7-32.2) pg MCHC 31.0 L 30.0 L (32.2-35.5) g/dl RDW Std Deviation 55.8 H 56.6 H (35.1-43.9) fL Plt Count 190 174 (163-337) K/mm3 MPV 8.9 L 9.2 L (9.4-12.3) fl Neut % (Auto) 75.7 H (34.0-67.9) % Lymph % (Auto) 9.6 L (21.8-53.1) % Hayes % (Auto) 13.3 H (5.3-12.2) % Eos % (Auto) 0.2 L (0.8-7.0) Baso % (Auto) 0.2 (0.1-1.2) % Neut # (Auto) 11.45 H (1.78-5.38) K/mm3 Lymph # (Auto) 1.46 (1.32-3.57) K/mm3 Hayes # (Auto) 2.01 H (0.30-0.82) K/mm3 Eos # (Auto) 0.03 L (0.04-0.54) K/mm3 Baso # (Auto) 0.03 (0.01-0.08) K/mm3 Neutrophils % (Manual) 83 H (40-60) % Band Neutrophils % 2 (0-10) % Lymphocytes % (Manual) 6 L (20-40) % Atypical Lymphs % 0 % Monocytes % (Manual) 9 (2-10) % Eosinophils % (Manual) 0 L (0.8-7.0) % Basophils % (Manual) 0 L (0.2-1.2) Manual Slide Review Abnormal smear Toxic Granulation Moderate Platelet Estimate Adequate Hypochromasia 1+ slight Anisocytosis 1+ slight Microcytosis 1+ slight Tear Drop Cells Few Ovalocytes 1+ slight RBC Morph Comment Not Reportable ESR (0-15) mm/hr PT 13.8 H (9.7-12.0) SECONDS INR 1.28 APTT 35 H (22-31) SECONDS Sodium (136-145) mEq/L Potassium (3.5-5.1) mEq/L Chloride (98-107) mEq/L Carbon Dioxide (21-32) mEq/L Anion Gap (5-15) BUN (7-18) mg/dL Creatinine (0.7-1.3) mg/dL Est Cr Clr Drug Dosing mL/min Estimated GFR (MDRD) (>60) mL/min BUN/Creatinine Ratio (14-18) Glucose (83-115) mg/dL Calcium (8.5-10.1) mg/dL Magnesium (1.8-2.4) mg/dl Total Bilirubin (0.2-1.0) mg/dL AST (15-37) U/L ALT (16-63) U/L Alkaline Phosphatase (46-116) U/L Troponin I (0.00-0.056) ng/mL C-Reactive Protein (<1.0) mg/dL NT-Pro-B Natriuret Pep (0-450) pg/mL Total Protein (6.4-8.2) g/dl Albumin (3.4-5.0) g/dl Globulin gm/dL Albumin/Globulin Ratio (1-2) 06/15/19 Range/Units 04:10 WBC (4.23-9.07) K/mm3 RBC (4.63-6.08) M/mm3 Hgb (13.7-17.5) gm/dl Hct (40.1-51.0) % MCV (79.0-92.2) fl MCH (25.7-32.2) pg MCHC (32.2-35.5) g/dl RDW Std Deviation (35.1-43.9) fL Plt Count (163-337) K/mm3 MPV (9.4-12.3) fl Neut % (Auto) (34.0-67.9) % Lymph % (Auto) (21.8-53.1) % Hayes % (Auto) (5.3-12.2) % Eos % (Auto) (0.8-7.0) Baso % (Auto) (0.1-1.2) % Neut # (Auto) (1.78-5.38) K/mm3 Lymph # (Auto) (1.32-3.57) K/mm3 Hayes # (Auto) (0.30-0.82) K/mm3 Eos # (Auto) (0.04-0.54) K/mm3 Baso # (Auto) (0.01-0.08) K/mm3 Neutrophils % (Manual) (40-60) % Band Neutrophils % (0-10) % Lymphocytes % (Manual) (20-40) % Atypical Lymphs % % Monocytes % (Manual) (2-10) % Eosinophils % (Manual) (0.8-7.0) % Basophils % (Manual) (0.2-1.2) Manual Slide Review Toxic Granulation Platelet Estimate Hypochromasia Anisocytosis Microcytosis Tear Drop Cells Ovalocytes RBC Morph Comment ESR (0-15) mm/hr PT (9.7-12.0) SECONDS INR APTT (22-31) SECONDS Sodium 142 (136-145) mEq/L Potassium 3.5 (3.5-5.1) mEq/L Chloride 103 (98-107) mEq/L Carbon Dioxide 30 (21-32) mEq/L Anion Gap 12.5 (5-15) BUN 17 (7-18) mg/dL Creatinine 1.2 (0.7-1.3) mg/dL Est Cr Clr Drug Dosing 57.08 mL/min Estimated GFR (MDRD) 58 (>60) mL/min BUN/Creatinine Ratio 14.2 (14-18) Glucose 119 H (83-115) mg/dL Calcium 8.2 L (8.5-10.1) mg/dL Magnesium 1.8 (1.8-2.4) mg/dl Total Bilirubin 1.3 H (0.2-1.0) mg/dL AST 14 L (15-37) U/L ALT 15 L (16-63) U/L Alkaline Phosphatase 156 H (46-116) U/L Troponin I (0.00-0.056) ng/mL C-Reactive Protein 17.8 H* (<1.0) mg/dL NT-Pro-B Natriuret Pep (0-450) pg/mL Total Protein 5.7 L (6.4-8.2) g/dl Albumin 2.7 L (3.4-5.0) g/dl Globulin 3.0 gm/dL Albumin/Globulin Ratio 0.9 L (1-2) Handy Results Last 24 Hours: Microbiology 06/14/19 18:07 Influenza Type A Antigen Screen - Final Nasal Aspirate, Unspecified NEGATIVE INFLUENZA A VIRUS AG REFERENCE RANGE: NEGATIVE Influenza Type B Antigen Screen - Final NEGATIVE INFLUENZA B VIRUS AG REFERENCE RANGE: NEGATIVE Med Orders - Current: Current Medications Acetaminophen (Tylenol) 650 mg PO Q4H PRN PRN Reason: Pain (Mild 1-3)/fever Last Admin: 06/15/19 05:28 Dose: 650 mg Albuterol (Proventil Neb Soln) 2.5 mg NEB Q2H PRN PRN Reason: Shortness Of Breath/wheezing Amlodipine Besylate (Norvasc) [address] [facility] Last Admin: 06/15/19 12:19 Dose: 5 mg Aspirin (Aspirin) [address] [facility] Last Admin: 06/15/19 08:10 Dose: 81 mg Enoxaparin Sodium (Lovenox) [address] [facility] Last Admin: 06/15/19 08:11 Dose: 40 mg Guaifenesin (Mucinex) [address] [facility] Hydralazine HCl (Apresoline) 10 mg IVPUSH Q4H PRN PRN Reason: Hypertension Meropenem/Sodium Chloride 500 (mg/ Premix) 50 mls @ 100 mls/hr IV Q6H [facility] Last Admin: 06/15/19 09:50 Dose: 100 mls/hr Vancomycin HCl 1 gm/ Sodium (Chloride) 100 mls @ 100 mls/hr IV Q12H [facility] Last Admin: 06/15/19 12:27 Dose: 100 mls/hr Ibuprofen (Motrin) 600 mg PO Q6H PRN PRN Reason: Pain (moderate 4-6) Levothyroxine Sodium (Synthroid) [address] [facility] Last Admin: 06/15/19 05:28 Dose: 88 mcg Melatonin (Melatonin) 9 mg PO BEDTIME PRN PRN Reason: Insomnia Ondansetron HCl (Zofran) 4 mg IV Q4H PRN PRN Reason: Nausea/Vomiting Potassium Chloride (Potassium Chloride Solution) [address] [facility] Sodium Chloride (Sodium Chloride 3%) [address] [facility] Vancomycin HCl (Pharmacy To Dose - Vancomycin) [address] [facility] Discontinued Medications Acetaminophen (Tylenol) 975 mg PO NOW ONE Stop: 06/14/19 17:28 Last Admin: 06/14/19 18:10 Dose: 975 mg Dextrose/Sodium Chloride (Dextrose 5%-Normal Saline) 1,000 mls @ 75 mls/hr IV ASDIRECTED [facility] Last Admin: 06/14/19 18:08 Dose: 75 mls/hr Linezolid 600 mg/ Premix 300 mls @ 300 mls/hr IV ONETIME ONE Stop: 06/14/19 18:51 Last Admin: 06/14/19 18:09 Dose: 300 mls/hr Vancomycin HCl 1.75 gm/ Sodium (Chloride) 500 mls @ 250 mls/hr IV ONETIME ONE Stop: 06/15/19 00:29 Last Admin: 06/14/19 23:43 Dose: 250 mls/hr Meropenem (Merrem) 1 gm IVPUSH ONETIME ONE Stop: 06/14/19 19:38 Last Admin: 06/14/19 21:36 Dose: 1 gm Meropenem (Merrem) [address] [facility] Potassium Chloride (Potassium Chloride Solution) 20 meq PO ONETIME ONE Stop: 06/15/19 11:34 Last Admin: 06/15/19 12:18 Dose: 20 meq - Exam General: Alert, Oriented HEENT: Pupils Equal Neck: Supple Lungs: Clear to Auscultation, Normal Respiratory Effort Cardiovascular: Regular Rate, Regular Rhythm GI/Abdominal Exam: Normal Bowel Sounds, Soft, Non-Tender, No Organomegaly, No Distention, No Abnormal Bruit, No Mass Back Exam: Normal Inspection, Full Range of Motion Extremities: Normal Inspection, Normal Range of Motion, Non-Tender, No Pedal Edema, Normal Capillary Refill Skin: Warm, Dry, Intact Psy/Mental Status: Alert, Normal Affect, Normal Mood Sepsis Event Note - Evaluation Sepsis Screening Result: No Definite Risk - Focused Exam Vital Signs: Vital Signs Temp Pulse Resp BP Pulse Ox Pulse Ox 06/15/19 12:19 127/98 H 06/15/19 08:58 92 L 06/15/19 08:08 98.4 F 85 18 126/72 93 L 06/15/19 06:16 99.3 F 06/15/19 05:28 101.2 F H 06/15/19 05:26 138/77 06/15/19 05:25 101.1 F H 87 20 93 L Date Exam was Performed: 06/15/19 Time Exam was Performed: 15:17 - Problem List Review Problem List Initiated/Reviewed/Updated: Yes - My Orders Last 24 Hours: My Active Orders 06/18/19 05:11 C-REACTIVE PROTEIN [CHEM] AM CBC WITH AUTO DIFF [HEME] AM COMPREHENSIVE METABOLIC PN,CMP [CHEM] AM MAGNESIUM [CHEM] AM 06/14/19 17:55 PROCALCITONIN [REF] Routine 06/14/19 20:48 Oxygen Therapy [RC] PRN Up ad Cecilia [RC] ASDIRECTED VTE/DVT Education [RC] DAILY Vital Signs [RC] Q4HR Acetaminophen [Tylenol] 650 mg PO Q4H PRN Albuterol [Proventil Neb Soln] 2.5 mg NEB Q2H PRN Ibuprofen [Motrin] 600 mg PO Q6H PRN Ondansetron [Zofran] 4 mg IV Q4H PRN Resuscitation Status Routine 06/14/19 20:50 Respiratory Care Assess and Treatment [CONS] Routine Melatonin 9 mg PO BEDTIME PRN 06/14/19 20:51 RT Aerosol Therapy [RC] ASDIRECTED 06/14/19 20:54 RT Chest Physiotherapy [RC] ASDIRECTED 06/14/19 22:00 Pharmacy to Dose - Vancomycin 1 dose .XX ASDIRECTED 06/14/19 22:03 hydrALAZINE [Apresoline] 10 mg IVPUSH Q4H PRN 06/15/19 02:25 LEGIONELLA ANTIGEN [MREF] Routine RESPIRATORY PANEL Routine STREP PNEUMONIAE ANTIGEN [MREF] Routine 06/15/19 04:00 Meropenem Premix [Meropenem] 500 mg Premix Bag 1 bag IV Q6H 06/15/19 06:00 Levothyroxine [Synthroid] 88 mcg PO ACBREAKFAST 06/15/19 09:00 Aspirin 81 mg PO DAILY Enoxaparin [Lovenox] 40 mg SUBCUT DAILY 06/15/19 11:30 Patient Status [ADT] Routine amLODIPine [Norvasc] 5 mg PO DAILY 06/15/19 12:00 Vancomycin [Vancocin] 1 gm Sodium Chloride 0.9% [Normal Saline] 100 ml IV Q12H 06/15/19 15:00 guaiFENesin [Mucinex] 600 mg PO TID 06/15/19 16:00 Sodium Chloride 3% 3 ml NEB QIDRT 06/15/19 Breakfast Regular Diet [DIET] 06/16/19 05:11 C-REACTIVE PROTEIN [CHEM] AM CBC WITH AUTO DIFF [HEME] AM COMPREHENSIVE METABOLIC PN,CMP [CHEM] AM MAGNESIUM [CHEM] AM 06/16/19 09:00 Potassium Chloride [Potassium Chloride Solution] 20 meq PO DAILY 06/17/19 05:11 C-REACTIVE PROTEIN [CHEM] AM CBC WITH AUTO DIFF [HEME] AM COMPREHENSIVE METABOLIC PN,CMP [CHEM] AM MAGNESIUM [CHEM] AM - Plan Plan:: Assessment * Bibasilar pneumonia, acute on chronic, possible obstructive * WBC 21, negative anion gap, ESR 22, chest x-ray consistent with pneumonia * Recent bronchoscopy on May 27, 2019 with negative cultures. Likely consistent with lymphoma. chronic inflammation and involvement of the patient's history of mantle cell lymphoma. Secretions were causing partial obstruction of the left lower bronchus. * Patient has been on ciprofloxacin and azithromycin recently increasing likelihood for resistance. * Mantle cell lymphoma with history of recent colon mass and resection in March or April of this year. * Chemotherapy every 2 weeks and next dose due on June 17 * History of hypertension and hypothyroidism Bronchoscopy results from May 27, 2019 are available: Lung, left lower, bronchioloalveolar lavage: Atypical lymphocytic infiltrate present. 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 No AFB seen. Culture results normal respiratory corina with many WBCs negative culture for acid-fast bacillus, no fungal growth, negative CMV PCR, negative for herpes simplex type I and II. Impression: Atelectasis of the left lower lobe Unresolved left lower lobe infiltrate Copious, white, thick secretions were found in the left lower lobe. Notable, white, thick secretions were found in the superior lingular segment of the left upper lobe and in the inferior lingular segment of the left upper lobe. Notable, white, thick secretions were found in the superior segment of the right lower lobe, in the medial basal segment of the right lower lobe, in the anterior basal segment of the right lower lobe, and the lateral basal segment of the right lower lobe, and in the posterior basal segment of the right lower lobe. The findings are suspicious for bacterial pneumonia. Findings are suspicious for community acquired pneumonia. Plan * Admit to floor * FiO2 to keep SPO2 above 90%. * Vancomycin and meropenem to cover MRSA and Pseudomonas. * Hypertonic saline nebulizer and Mucinex. * RT and physiotherapy. * Albuterol nebulizer as needed every 2 hours * CBC, CMP, mag, C-reactive protein daily * Reconcile home meds. * VTE prophylaxis with Lovenox * CODE STATUS: Full code * Length of stay likely 4 or more more days.
[2019-06-15] MEDS: Sodium Chloride 3% Inhalation Soln 4 ML Neb NEB SCH ×2 (15:31→21:50)
[2019-06-15] MEDS: guaiFENesin 600 MG Tab.ER PO SCH ×2 (16:01→21:38)
[2019-06-16] MEDS: Meropenem Premix 500 MG in Premix Bag 1 BAG IV SCH ×4 (04:59→21:25)
[2019-06-16] MEDS: Levothyroxine 88 MCG Tab PO SCH (05:00)
[2019-06-16] MEDS: Sodium Chloride 3% Inhalation Soln 4 ML Neb NEB SCH ×4 (06:08→20:29)
--- NOTE | 2019-06-16 07:12 | CR ---
Chest: Portable view of the chest is obtained. Comparison: No prior chest imaging. Heart size and mediastinum are normal. Left-sided infusion port is seen. Interstitial changes are seen within the left base with lesser interstitial change within the right base. Bony structures are grossly intact. Impression: 1. Interstitial changes within both lung bases, worse on the left side. Difficult to exclude pneumonia. 2. Left sided infusion catheter. 3. No additional abnormality is appreciated. Diagnostic code #3 This report was dictated in [place] Standard Time
--- NOTE | 2019-06-16 08:18 | PCM.PN ---
- General Info Date of Service: 06/16/19 Admission Dx/Problem (Free Text): Admission Diagnosis/Problem Admission Diagnosis/Problem Acute febrile illness Subjective Update: In to see Duong. He reports he feels better than yesterday. He continues to have a productive cough. Will add duonebs. Potassium was low and will supplement. Functional Status: Reports: Pain Controlled, Tolerating Diet, Ambulating, Urinating, Incentive Spirometry, Other (Acapella ). Denies: New Symptoms - Review of Systems General: Reports: No Symptoms. Denies: Fever, Weakness, Fatigue, Malaise, Chills HEENT: Reports: No Symptoms. Denies: Headaches, Sore Throat Pulmonary: Reports: Shortness of Breath, Cough, Sputum, Wheezing Cardiovascular: Reports: Dyspnea on Exertion, Edema (chronic - waxes and wanes, worse after standing all day.). Denies: Chest Pain, Palpitations Gastrointestinal: Reports: No Symptoms. Denies: Abdominal Pain, Constipation, Diarrhea, Nausea, Vomiting Genitourinary: Reports: No Symptoms. Denies: Pain Musculoskeletal: Reports: No Symptoms Skin: Reports: No Symptoms. Denies: Cyanosis Neurological: Reports: No Symptoms. Denies: Pre-Existing Deficit, Difficulty Walking, Gait Disturbance Psychiatric: Reports: No Symptoms - Patient Data Vitals - Most Recent: Last Vital Signs Temp 98.1 F 06/16/19 04:55 Pulse 66 06/16/19 04:55 Resp 14 06/16/19 04:55 BP 135/67 06/16/19 04:55 Pulse Ox 98 06/16/19 06:09 Weight - Most Recent: 208 lb 11.2 oz I&O - Last 24 Hours: Intake & Output 06/15/19 06/16/19 06/16/19 22:59 06:59 14:59 Intake Total 670 560 Output Total 550 650 Balance 120 -90 Lab Results Last 24 Hours: Laboratory Results - last 24 hr 06/16/19 06/16/19 Range/Units 04:48 04:48 WBC 9.17 H (4.23-9.07) K/mm3 RBC 3.90 L (4.63-6.08) M/mm3 Hgb 9.5 L (13.7-17.5) gm/dl Hct 31.4 L (40.1-51.0) % MCV 80.5 (79.0-92.2) fl MCH 24.4 L (25.7-32.2) pg MCHC 30.3 L (32.2-35.5) g/dl RDW Std Deviation 56.0 H (35.1-43.9) fL Plt Count 154 L (163-337) K/mm3 MPV 9.9 (9.4-12.3) fl Neut % (Auto) 69.6 H (34.0-67.9) % Lymph % (Auto) 12.8 L (21.8-53.1) % [place] % (Auto) 15.4 H (5.3-12.2) % Eos % (Auto) 0.9 (0.8-7.0) Baso % (Auto) 0.4 (0.1-1.2) % Neut # (Auto) 6.39 H (1.78-5.38) K/mm3 Lymph # (Auto) 1.17 L (1.32-3.57) K/mm3 [place] # (Auto) 1.41 H (0.30-0.82) K/mm3 Eos # (Auto) 0.08 (0.04-0.54) K/mm3 Baso # (Auto) 0.04 (0.01-0.08) K/mm3 Manual Slide Review Abnormal smear Sodium 141 (136-145) mEq/L Potassium 3.2 L (3.5-5.1) mEq/L Chloride 104 (98-107) mEq/L Carbon Dioxide 29 (21-32) mEq/L Anion Gap 11.2 (5-15) BUN 15 (7-18) mg/dL Creatinine 0.9 (0.7-1.3) mg/dL Est Cr Clr Drug Dosing 76.11 mL/min Estimated GFR (MDRD) > 60 (>60) mL/min BUN/Creatinine Ratio 16.7 (14-18) Glucose 106 (83-115) mg/dL Calcium 8.3 L (8.5-10.1) mg/dL Magnesium 1.9 (1.8-2.4) mg/dl Total Bilirubin 1.1 H (0.2-1.0) mg/dL AST 13 L (15-37) U/L ALT 14 L (16-63) U/L Alkaline Phosphatase 124 H (46-116) U/L C-Reactive Protein 19.3 H* (<1.0) mg/dL Total Protein 5.5 L (6.4-8.2) g/dl Albumin 2.4 L (3.4-5.0) g/dl Globulin 3.1 gm/dL Albumin/Globulin Ratio 0.8 L (1-2) Handy Results Last 24 Hours: Microbiology 06/14/19 17:15 Aerobic Blood Culture - Preliminary Blood - Venous - Lab Draw NO GROWTH AFTER 1 DAY Anaerobic Blood Culture - Preliminary NO GROWTH AFTER 1 DAY 06/14/19 17:15 Aerobic Blood Culture - Preliminary Blood - Venous NO GROWTH AFTER 1 DAY Anaerobic Blood Culture - Preliminary NO GROWTH AFTER 1 DAY Med Orders - Current: Current Medications Acetaminophen (Tylenol) 650 mg PO Q4H PRN PRN Reason: Pain (Mild 1-3)/fever Last Admin: 06/15/19 16:18 Dose: 650 mg Albuterol (Proventil Neb Soln) 2.5 mg NEB Q2H PRN PRN Reason: Shortness Of Breath/wheezing Amlodipine Besylate (Norvasc) 5 mg PO DAILY [facility] Last Admin: 06/15/19 12:19 Dose: 5 mg Aspirin (Aspirin) 81 mg PO DAILY [facility] Last Admin: 06/15/19 08:10 Dose: 81 mg Enoxaparin Sodium (Lovenox) 40 mg SUBCUT DAILY [facility] Last Admin: 06/15/19 08:11 Dose: 40 mg Guaifenesin (Mucinex) 600 mg PO TID [facility] Last Admin: 06/15/19 21:38 Dose: 600 mg Hydralazine HCl (Apresoline) 10 mg IVPUSH Q4H PRN PRN Reason: Hypertension Meropenem/Sodium Chloride 500 (mg/ Premix) 50 mls @ 100 mls/hr IV Q6H [facility] Last Admin: 06/16/19 04:59 Dose: 100 mls/hr Vancomycin HCl 1 gm/ Sodium (Chloride) 100 mls @ 100 mls/hr IV Q12H [facility] Last Admin: 06/15/19 23:09 Dose: 100 mls/hr Potassium Chloride 10 meq/ (Premix) 100 mls @ 100 mls/hr IV Q1H [facility] Stop: 06/16/19 14:14 Ibuprofen (Motrin) 600 mg PO Q6H PRN PRN Reason: Pain (moderate 4-6) Levothyroxine Sodium (Synthroid) 88 mcg PO ACBREAKFAST [facility] Last Admin: 06/16/19 05:00 Dose: 88 mcg Melatonin (Melatonin) 9 mg PO BEDTIME PRN PRN Reason: Insomnia Ondansetron HCl (Zofran) 4 mg IV Q4H PRN PRN Reason: Nausea/Vomiting Sodium Chloride (Sodium Chloride 3%) 3 ml NEB QIDRT [facility] Last Admin: 06/16/19 06:08 Dose: 3 ml Vancomycin HCl (Pharmacy To Dose - Vancomycin) 1 dose .XX ASDIRECTED [facility] Discontinued Medications Acetaminophen (Tylenol) 975 mg PO NOW ONE Stop: 06/14/19 17:28 Last Admin: 06/14/19 18:10 Dose: 975 mg Dextrose/Sodium Chloride (Dextrose 5%-Normal Saline) 1,000 mls @ 75 mls/hr IV ASDIRECTED [facility] Last Admin: 06/14/19 18:08 Dose: 75 mls/hr Linezolid 600 mg/ Premix 300 mls @ 300 mls/hr IV ONETIME ONE Stop: 06/14/19 18:51 Last Admin: 06/14/19 18:09 Dose: 300 mls/hr Vancomycin HCl 1.75 gm/ Sodium (Chloride) 500 mls @ 250 mls/hr IV ONETIME ONE Stop: 06/15/19 00:29 Last Admin: 06/14/19 23:43 Dose: 250 mls/hr Meropenem (Merrem) 1 gm IVPUSH ONETIME ONE Stop: 06/14/19 19:38 Last Admin: 06/14/19 21:36 Dose: 1 gm Meropenem (Merrem) 1 gm IVPUSH Q8H [facility] Potassium Chloride (Potassium Chloride Solution) 20 meq PO DAILY [facility] Potassium Chloride (Potassium Chloride Solution) 20 meq PO ONETIME ONE Stop: 06/15/19 11:34 Last Admin: 06/15/19 12:18 Dose: 20 meq - Exam Quality Assessment: Supplemental Oxygen (3L), Central Line/PICC (Port in chest ) , DVT Prophylaxis General: Alert, Oriented, Cooperative, No Acute Distress HEENT: Pupils Equal, Pupils Reactive, Mucous Membr. Moist/[place] Neck: Supple, Trachea Midline Lungs: Normal Respiratory Effort, Decreased Breath Sounds, Rhonchi. No: Wheezing Cardiovascular: Regular Rate, Regular Rhythm GI/Abdominal Exam: Normal Bowel Sounds, Soft, Non-Tender, No Distention, No Abnormal Bruit (Male) Exam: Deferred Back Exam: Normal Inspection, Full Range of Motion Extremities: Normal Inspection, Normal Range of Motion, Non-Tender, No Pedal Edema, Normal Capillary Refill Skin: Warm, Dry, Intact Neurological: No New Focal Deficit Psy/Mental Status: Alert, Normal Affect, Normal Mood Sepsis Event Note - Evaluation Sepsis Screening Result: No Definite Risk - Focused Exam Vital Signs: Vital Signs Temp Pulse Resp BP Pulse Ox Pulse Ox 06/16/19 06:09 98 06/16/19 04:55 98.1 F 66 14 135/67 94 L 06/15/19 21:51 94 L 06/15/19 21:36 98.2 F 68 12 119/76 96 Date Exam was Performed: 06/16/19 Time Exam was Performed: 09:35 - Problem List & Annotations (1) Acute febrile illness SNOMED Code(s): 613680124 Code(s): R50.9 - FEVER, UNSPECIFIED Status: Acute Priority: High Current Visit: Yes (2) Bilateral pneumonia SNOMED Code(s): 649746258 Code(s): J18.9 - PNEUMONIA, UNSPECIFIED ORGANISM Status: Acute Priority: High Current Visit: Yes Qualifiers: Pneumonia type: due to unspecified organism Lung location: lower lobe of lung Qualified Code(s): J18.9 - Pneumonia, unspecified organism (3) Hypoxia SNOMED Code(s): 219278254 Code(s): R09.02 - HYPOXEMIA Status: Acute Priority: High Current Visit : Yes (4) Mantle cell lymphoma SNOMED Code(s): 708999705, 628372426 Code(s): C83.10 - MANTLE CELL LYMPHOMA, UNSPECIFIED SITE Status: Chronic Priority: High Current Visit: Yes Qualifiers: Lymphoma site: unspecified region Qualified Code(s): C83.10 - Mantle cell lymphoma, unspecified site (5) Hypothyroidism SNOMED Code(s): 55529894 Code(s): E03.9 - HYPOTHYROIDISM, UNSPECIFIED Status: Chronic Priority: Medium Current Visit: No Qualifiers: Hypothyroidism type: unspecified Qualified Code(s): E03.9 - Hypothyroidism , unspecified (6) Hypertension SNOMED Code(s): 87793522 Code(s): I10 - ESSENTIAL (PRIMARY) HYPERTENSION Status: Chronic Priority : Medium Current Visit: No Qualifiers: Hypertension type: unspecified Qualified Code(s): I10 - Essential (primary ) hypertension - Problem List Review Problem List Initiated/Reviewed/Updated: Yes - My Orders Last 24 Hours: My Active Orders 06/16/19 08:10 Isolation [COMM] Routine 06/16/19 08:11 Incentive Spirometry [RT Incentive Spirometry] [RC] ASDIRECTED Consult to Spiritual Care [CONS] Routine 06/16/19 08:12 Consult to Case Management/Special Education Kindergarten Teacher [CONS] Routine 06/16/19 08:15 Potassium Chloride [KCl 10 MEQ in Water 100 ML] 10 meq Premix Bag 1 bag IV Q1H - Plan Plan:: Assessment * Bibasilar pneumonia, acute on chronic, possible obstructive * WBC 21-->9.17, negative anion gap, ESR 22, chest x-ray consistent with pneumonia * Recent bronchoscopy on May 27, 2019 with negative cultures. Likely consistent with lymphoma. chronic inflammation and involvement of the patient's history of mantle cell lymphoma. Secretions were causing partial obstruction of the left lower bronchus. * Patient has been on ciprofloxacin and azithromycin recently increasing likelihood for resistance. * Mantle cell lymphoma with history of recent colon mass and resection in March or April of this year. * Chemotherapy every 2 weeks and next dose due on June 17 * History of hypertension and hypothyroidism * Hypokalemia with potassium of 3.2 Bronchoscopy results from May 27, 2019 are available: Lung, left lower, bronchioloalveolar lavage: Atypical lymphocytic infiltrate present. 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 No AFB seen. Culture results normal respiratory corina with many WBCs negative culture for acid-fast bacillus, no fungal growth, negative CMV PCR, negative for herpes simplex type I and II. Impression: Atelectasis of the left lower lobe Unresolved left lower lobe infiltrate Copious, white, thick secretions were found in the left lower lobe. Notable, white, thick secretions were found in the superior lingular segment of the left upper lobe and in the inferior lingular segment of the left upper lobe. Notable, white, thick secretions were found in the superior segment of the right lower lobe, in the medial basal segment of the right lower lobe, in the anterior basal segment of the right lower lobe, and the lateral basal segment of the right lower lobe, and in the posterior basal segment of the right lower lobe. The findings are suspicious for bacterial pneumonia. Findings are suspicious for community acquired pneumonia. Plan * Admit to floor * FiO2 to keep SPO2 above 90%. * Vancomycin and meropenem to cover MRSA and Pseudomonas. * Hypertonic saline nebulizer and Mucinex. * Scheduled duonebs * RT and physiotherapy. * Sputum culture * Albuterol nebulizer as needed every 2 hours * CBC, CMP, mag, C-reactive protein daily * Reconcile home meds. * Supplement potassium * VTE prophylaxis with Lovenox * CODE STATUS: Full code * Length of stay likely 2-3 or more more days. LOS >96hrs due to slow response to treatment.
[2019-06-16] MEDS ORDERED: Sodium Chloride 0.9% 1,000 ML IV SCH (08:45)
[2019-06-16] MEDS ORDERED: Potassium Chloride 10% 20 MEQ/15 ML Soln 15 ML UD Cup PO SCH (09:00)
[2019-06-16] MEDS ORDERED: Albuterol/Ipratropium 3.0-0.5 MG/3 ML Neb Soln NEB PRN (09:02)
[2019-06-16] MEDS: Potassium Chloride 10 MEQ in Premix Bag 1 BAG IV SCH ×6 (09:07→15:25)
[2019-06-16] MEDS: guaiFENesin 600 MG Tab.ER PO SCH ×3 (09:19→21:25)
[2019-06-16] MEDS: Aspirin 81 MG Tab.Chew PO SCH (09:19)
[2019-06-16] MEDS: amLODIPine 5 MG Tab PO SCH (09:20)
[2019-06-16] MEDS: Enoxaparin 40 MG/0.4 ML Syringe SUBCUT SCH (09:21)
[2019-06-16] MEDS: Vancomycin 1 GM in Sodium Chloride 0.9% 100 ML IV SCH (13:27)
[2019-06-16] MEDS ORDERED: Vancomycin 1 GM, Vancomycin 250 MG in Sodium Chloride 0.9% 250 ML IV SCH (13:30)
[2019-06-16] MEDS: Vancomycin 1 GM, Vancomycin 250 MG in Sodium Chloride 0.9% 250 ML IV SCH (13:50)
[2019-06-17] MEDS: Vancomycin 1 GM, Vancomycin 250 MG in Sodium Chloride 0.9% 250 ML IV SCH (02:30)
[2019-06-17] MEDS: Meropenem Premix 500 MG in Premix Bag 1 BAG IV SCH ×4 (05:09→21:27)
[2019-06-17] MEDS: Levothyroxine 88 MCG Tab PO SCH (05:09)
[2019-06-17] MEDS: Sodium Chloride 3% Inhalation Soln 4 ML Neb NEB SCH ×4 (06:25→20:46)
--- NOTE | 2019-06-17 07:10 | PCM.PN ---
<Kris Bonner - Last Filed: 06/17/19 09:16> - General Info Date of Service: 06/17/19 Admission Dx/Problem (Free Text): Admission Diagnosis/Problem Admission Diagnosis/Problem Acute febrile illness Subjective Update: In to see sylvester. He reports his cough/sputum is worse, which is to be expected. Overall he feels better. Positive RVP for rhino/enterovirus. Will check MRSA screen today and then downgrade ABX if negative. He was supposed to have oncology appt today but the family called and canceled it. They were unable to reschedule due to him still being hospitalized. He reports he has oxygen concentrator at home and will likely need to be qualified prior to discharge. Functional Status: Reports: Pain Controlled, Tolerating Diet, Ambulating, Urinating, Incentive Spirometry, Other (acapella ). Denies: New Symptoms - Review of Systems General: Reports: Weakness, Fatigue. Denies: Fever, Malaise, Chills HEENT: Reports: No Symptoms. Denies: Headaches, Sore Throat Pulmonary: Reports: Shortness of Breath, Cough, Sputum. Denies: Pleuritic Chest Pain, Wheezing Cardiovascular: Reports: Dyspnea on Exertion, Edema (chronic that comes and goes ). Denies: Chest Pain, Palpitations Gastrointestinal: Reports: No Symptoms. Denies: Abdominal Pain, Constipation, Diarrhea, Nausea, Vomiting Genitourinary: Reports: No Symptoms. Denies: Pain Musculoskeletal: Reports: No Symptoms Skin: Reports: No Symptoms. Denies: Cyanosis Neurological: Reports: No Symptoms. Denies: Confusion, Pre-Existing Deficit, Difficulty Walking, Gait Disturbance Psychiatric: Reports: No Symptoms - Patient Data Vitals - Most Recent: Last Vital Signs Temp 98.2 F 06/17/19 05:08 Pulse 67 06/17/19 05:08 Resp 18 06/17/19 05:08 BP 130/84 06/17/19 05:08 Pulse Ox 91 L 06/17/19 06:28 Weight - Most Recent: 211 lb 14.4 oz I&O - Last 24 Hours: Intake & Output 06/16/19 06/17/19 06/17/19 22:59 06:59 14:59 Intake Total 2301 800 Output Total 1600 900 Balance 701 -100 Lab Results Last 24 Hours: Laboratory Results - last 24 hr 06/14/19 06/15/19 06/16/19 Range/Units 17:55 02:25 11:46 WBC (4.23-9.07) K/mm3 RBC (4.63-6.08) M/mm3 Hgb (13.7-17.5) gm/dl Hct (40.1-51.0) % MCV (79.0-92.2) fl MCH (25.7-32.2) pg MCHC (32.2-35.5) g/dl RDW Std Deviation (35.1-43.9) fL Plt Count (163-337) K/mm3 MPV (9.4-12.3) fl Neut % (Auto) (34.0-67.9) % Lymph % (Auto) (21.8-53.1) % [place] % (Auto) (5.3-12.2) % Eos % (Auto) (0.8-7.0) Baso % (Auto) (0.1-1.2) % Neut # (Auto) (1.78-5.38) K/mm3 Lymph # (Auto) (1.32-3.57) K/mm3 [place] # (Auto) (0.30-0.82) K/mm3 Eos # (Auto) (0.04-0.54) K/mm3 Baso # (Auto) (0.01-0.08) K/mm3 Sodium (136-145) mEq/L Potassium (3.5-5.1) mEq/L Chloride (98-107) mEq/L Carbon Dioxide (21-32) mEq/L Anion Gap (5-15) BUN (7-18) mg/dL Creatinine (0.7-1.3) mg/dL Est Cr Clr Drug Dosing mL/min Estimated GFR (MDRD) (>60) mL/min BUN/Creatinine Ratio (14-18) Glucose (83-115) mg/dL Calcium (8.5-10.1) mg/dL Magnesium (1.8-2.4) mg/dl Total Bilirubin (0.2-1.0) mg/dL AST (15-37) U/L ALT (16-63) U/L Alkaline Phosphatase (46-116) U/L C-Reactive Protein (<1.0) mg/dL Total Protein (6.4-8.2) g/dl Albumin (3.4-5.0) g/dl Globulin gm/dL Albumin/Globulin Ratio (1-2) Procalcitonin 0.78 H (<0.10) ng/mL Vancomycin Trough 9.7 L (10.0-20.0) Adenovirus (PCR) Not detected (Not Detected) B. pertussis DNA (PCR) Not detected (Not Detected) B.parapertussis DNA PCR Not detected (Not Detected) C. pneumoniae DNA (PCR) Not detected (Not Detected) Coronavirus (PCR) Not detected (Not Detected) Human Metapneumovir PCR Not detected (Not Detected) Influenza A (RT-PCR) Not detected (Not Detected) Influenza B (RT-PCR) Not detected (Not Detected) M. pneumoniae (PCR) Not detected (Not Detected) Parainfluen 1,2,3,4 PCR Not detected (Not Detected) RSV (PCR) Not detected (Not Detected) Entero/Rhino (PCR) Detected H (Not Detected) 06/17/19 06/17/19 Range/Units 06:05 06:05 WBC 6.82 (4.23-9.07) K/mm3 RBC 4.16 L (4.63-6.08) M/mm3 Hgb 9.9 L (13.7-17.5) gm/dl Hct 33.5 L (40.1-51.0) % MCV 80.5 (79.0-92.2) fl MCH 23.8 L (25.7-32.2) pg MCHC 29.6 L (32.2-35.5) g/dl RDW Std Deviation 56.2 H (35.1-43.9) fL Plt Count 198 (163-337) K/mm3 MPV 9.8 (9.4-12.3) fl Neut % (Auto) 52.7 (34.0-67.9) % Lymph % (Auto) 29.5 (21.8-53.1) % [place] % (Auto) 13.6 H (5.3-12.2) % Eos % (Auto) 2.6 (0.8-7.0) Baso % (Auto) 0.6 (0.1-1.2) % Neut # (Auto) 3.59 (1.78-5.38) K/mm3 Lymph # (Auto) 2.01 (1.32-3.57) K/mm3 [place] # (Auto) 0.93 H (0.30-0.82) K/mm3 Eos # (Auto) 0.18 (0.04-0.54) K/mm3 Baso # (Auto) 0.04 (0.01-0.08) K/mm3 Sodium 141 (136-145) mEq/L Potassium 3.7 (3.5-5.1) mEq/L Chloride 104 (98-107) mEq/L Carbon Dioxide 28 (21-32) mEq/L Anion Gap 12.7 (5-15) BUN 12 (7-18) mg/dL Creatinine 0.9 (0.7-1.3) mg/dL Est Cr Clr Drug Dosing 76.11 mL/min Estimated GFR (MDRD) > 60 (>60) mL/min BUN/Creatinine Ratio 13.3 L (14-18) Glucose 109 (83-115) mg/dL Calcium 8.6 (8.5-10.1) mg/dL Magnesium 2.0 (1.8-2.4) mg/dl Total Bilirubin 0.6 (0.2-1.0) mg/dL AST 12 L (15-37) U/L ALT 15 L (16-63) U/L Alkaline Phosphatase 119 H (46-116) U/L C-Reactive Protein 12.2 H* (<1.0) mg/dL Total Protein 6.0 L (6.4-8.2) g/dl Albumin 2.6 L (3.4-5.0) g/dl Globulin 3.4 gm/dL Albumin/Globulin Ratio 0.8 L (1-2) Procalcitonin (<0.10) ng/mL Vancomycin Trough (10.0-20.0) Adenovirus (PCR) (Not Detected) B. pertussis DNA (PCR) (Not Detected) B.parapertussis DNA PCR (Not Detected) C. pneumoniae DNA (PCR) (Not Detected) Coronavirus (PCR) (Not Detected) Human Metapneumovir PCR (Not Detected) Influenza A (RT-PCR) (Not Detected) Influenza B (RT-PCR) (Not Detected) M. pneumoniae (PCR) (Not Detected) Parainfluen 1,2,3,4 PCR (Not Detected) RSV (PCR) (Not Detected) Entero/Rhino (PCR) (Not Detected) Handy Results Last 24 Hours: Microbiology 06/15/19 02:25 Streptococcus pneumoniae Antigen (M - Final Urine 06/15/19 02:25 Legionella Urinary Antigen - Final Urine 06/14/19 17:15 Aerobic Blood Culture - Preliminary Blood - Venous - Lab Draw NO GROWTH AFTER 2 DAYS Anaerobic Blood Culture - Preliminary NO GROWTH AFTER 2 DAYS 06/14/19 17:15 Aerobic Blood Culture - Preliminary Blood - Venous NO GROWTH AFTER 2 DAYS Anaerobic Blood Culture - Preliminary NO GROWTH AFTER 2 DAYS 06/16/19 09:30 Gram Stain - Final Sputum - Expectorated Med Orders - Current: Current Medications Acetaminophen (Tylenol) 650 mg PO Q4H PRN PRN Reason: Pain (Mild 1-3)/fever Last Admin: 06/15/19 16:18 Dose: 650 mg Albuterol (Proventil Neb Soln) 2.5 mg NEB Q2H PRN PRN Reason: Shortness Of Breath/wheezing Albuterol/Ipratropium (Duoneb 3.0-0.5 Mg/3 Ml) 3 ml NEB Q6HRRT PRN PRN Reason: wheezing/SOB/cough Amlodipine Besylate (Norvasc) 5 mg PO DAILY [facility] Last Admin: 06/16/19 09:20 Dose: 5 mg Aspirin (Aspirin) 81 mg PO DAILY [facility] Last Admin: 06/16/19 09:19 Dose: 81 mg Enoxaparin Sodium (Lovenox) 40 mg SUBCUT DAILY [facility] Last Admin: 06/16/19 09:21 Dose: 40 mg Guaifenesin (Mucinex) 600 mg PO TID [facility] Last Admin: 06/16/19 21:25 Dose: 600 mg Hydralazine HCl (Apresoline) 10 mg IVPUSH Q4H PRN PRN Reason: Hypertension Meropenem/Sodium Chloride 500 (mg/ Premix) 50 mls @ 100 mls/hr IV Q6H [facility] Last Admin: 06/17/19 05:09 Dose: 100 mls/hr Vancomycin HCl 1 gm/Vancomycin HCl 250 mg/ Sodium Chloride 250 mls @ 166.667 mls/hr IV Q12H [facility] Last Admin: 06/17/19 02:30 Dose: 166.667 mls/hr Ibuprofen (Motrin) 600 mg PO Q6H PRN PRN Reason: Pain (moderate 4-6) Levothyroxine Sodium (Synthroid) 88 mcg PO ACBREAKFAST [facility] Last Admin: 06/17/19 05:09 Dose: 88 mcg Melatonin (Melatonin) 9 mg PO BEDTIME PRN PRN Reason: Insomnia Ondansetron HCl (Zofran) 4 mg IV Q4H PRN PRN Reason: Nausea/Vomiting Sodium Chloride (Sodium Chloride 3%) 3 ml NEB QIDRT [facility] Last Admin: 06/17/19 06:25 Dose: 3 ml Vancomycin HCl (Pharmacy To Dose - Vancomycin) 1 dose .XX ASDIRECTED [facility] Discontinued Medications Acetaminophen (Tylenol) 975 mg PO NOW ONE Stop: 06/14/19 17:28 Last Admin: 06/14/19 18:10 Dose: 975 mg Dextrose/Sodium Chloride (Dextrose 5%-Normal Saline) 1,000 mls @ 75 mls/hr IV ASDIRECTED [facility] Last Admin: 06/14/19 18:08 Dose: 75 mls/hr Linezolid 600 mg/ Premix 300 mls @ 300 mls/hr IV ONETIME ONE Stop: 06/14/19 18:51 Last Admin: 06/14/19 18:09 Dose: 300 mls/hr Vancomycin HCl 1.75 gm/ Sodium (Chloride) 500 mls @ 250 mls/hr IV ONETIME ONE Stop: 06/15/19 00:29 Last Admin: 06/14/19 23:43 Dose: 250 mls/hr Vancomycin HCl 1 gm/ Sodium (Chloride) 100 mls @ 100 mls/hr IV Q12H [facility] Last Admin: 06/16/19 13:27 Dose: Not Given Potassium Chloride 10 meq/ (Premix) 100 mls @ 100 mls/hr IV Q1H [facility] Stop: 06/16/19 14:14 Last Admin: 06/16/19 15:25 Dose: 100 mls/hr Sodium Chloride (Normal Saline) 1,000 mls @ 75 mls/hr IV ASDIRECTED [facility] Last Admin: 06/16/19 09:05 Dose: 75 mls/hr Vancomycin HCl 1 gm/Vancomycin HCl 250 mg/ Sodium Chloride 250 mls @ 250 mls/ hr IV Q12H [facility] Last Admin: 06/16/19 15:02 Dose: Not Given Meropenem (Merrem) 1 gm IVPUSH ONETIME ONE Stop: 06/14/19 19:38 Last Admin: 06/14/19 21:36 Dose: 1 gm Meropenem (Merrem) 1 gm IVPUSH Q8H [facility] Potassium Chloride (Potassium Chloride Solution) 20 meq PO DAILY [facility] Potassium Chloride (Potassium Chloride Solution) 20 meq PO ONETIME ONE Stop: 06/15/19 11:34 Last Admin: 06/15/19 12:18 Dose: 20 meq - Exam Quality Assessment: Supplemental Oxygen (3L), Central Line/PICC (Port in chest ) , DVT Prophylaxis General: Alert, Oriented, Cooperative, No Acute Distress HEENT: Pupils Equal, Pupils Reactive, Mucous Membr. Moist/[place] Neck: Supple Lungs: Normal Respiratory Effort, Decreased Breath Sounds, Rhonchi Cardiovascular: Regular Rate, Regular Rhythm GI/Abdominal Exam: Normal Bowel Sounds, Soft, Non-Tender, No Distention, No Abnormal Bruit (Male) Exam: Deferred Back Exam: Normal Inspection, Full Range of Motion Extremities: Normal Inspection, Normal Range of Motion, Non-Tender, No Pedal Edema, Normal Capillary Refill Peripheral Pulses: 2+: Radial (L), Radial (R), Dorsalis Pedis (L), Dorsalis Pedis (R) Skin: Warm, Dry, Intact Neurological: No New Focal Deficit Psy/Mental Status: Alert, Normal Affect, Normal Mood Sepsis Event Note - Evaluation Sepsis Screening Result: No Definite Risk - Focused Exam Vital Signs: Vital Signs Temp Pulse Resp BP Pulse Ox Pulse Ox 06/17/19 06:28 91 L 06/17/19 05:08 98.2 F 67 18 130/84 97 06/16/19 21:24 98.8 F 65 20 134/77 96 06/16/19 20:32 96 Date Exam was Performed: 06/17/19 Time Exam was Performed: 09:16 - Problem List & Annotations (1) Acute febrile illness SNOMED Code(s): 058701989 Code(s): R50.9 - FEVER, UNSPECIFIED Status: Acute Priority: High Current Visit: Yes (2) Bilateral pneumonia SNOMED Code(s): 582641907 Code(s): J18.9 - PNEUMONIA, UNSPECIFIED ORGANISM Status: Acute Priority: High Current Visit: Yes Qualifiers: Pneumonia type: due to unspecified organism Lung location: lower lobe of lung Qualified Code(s): J18.9 - Pneumonia, unspecified organism (3) Hypoxia SNOMED Code(s): 058756842 Code(s): R09.02 - HYPOXEMIA Status: Acute Priority: High Current Visit : Yes (4) Mantle cell lymphoma SNOMED Code(s): 624446025, 707196543 Code(s): C83.10 - MANTLE CELL LYMPHOMA, UNSPECIFIED SITE Status: Chronic Priority: High Current Visit: Yes Qualifiers: Lymphoma site: unspecified region Qualified Code(s): C83.10 - Mantle cell lymphoma, unspecified site (5) Hypothyroidism SNOMED Code(s): 86497354 Code(s): E03.9 - HYPOTHYROIDISM, UNSPECIFIED Status: Chronic Priority: Medium Current Visit: No Qualifiers: Hypothyroidism type: unspecified Qualified Code(s): E03.9 - Hypothyroidism , unspecified (6) Hypertension SNOMED Code(s): 97234503 Code(s): I10 - ESSENTIAL (PRIMARY) HYPERTENSION Status: Chronic Priority : Medium Current Visit: No Qualifiers: Hypertension type: unspecified Qualified Code(s): I10 - Essential (primary ) hypertension (7) Rhinovirus infection SNOMED Code(s): 24386513 Code(s): B34.8 - OTHER VIRAL INFECTIONS OF UNSPECIFIED SITE Status: Acute Priority: High Current Visit: Yes - Problem List Review Problem List Initiated/Reviewed/Updated: Yes - My Orders Last 24 Hours: My Active Orders 06/16/19 08:10 Isolation [COMM] Routine 06/16/19 08:11 Incentive Spirometry [RT Incentive Spirometry] [RC] ASDIRECTED Consult to Spiritual Care [CONS] Routine 06/16/19 08:12 Consult to Case Management/Screening Technician [CONS] Routine 06/16/19 08:37 Consult to Occupational Therapy [OT Evaluation and Treatment] [CONS] Routine PT Evaluation and Treatment [CONS] Routine 06/16/19 09:02 Albuterol/Ipratropium [DuoNeb 3.0-0.5 MG/3 ML] 3 ml NEB Q6HRRT PRN 06/16/19 09:30 CULTURE SPUTUM + SMEAR [RM] Routine - Plan Plan:: Assessment * Bibasilar pneumonia, acute on chronic, possible obstructive * WBC 21-->9.17, negative anion gap, ESR 22, chest x-ray consistent with pneumonia * Recent bronchoscopy on May 27, 2019 with negative cultures. Likely consistent with lymphoma. chronic inflammation and involvement of the patient's history of mantle cell lymphoma. Secretions were causing partial obstruction of the left lower bronchus. * Patient has been on ciprofloxacin and azithromycin recently increasing likelihood for resistance. * Positive rhinovirus/enterovirus * Mantle cell lymphoma with history of recent colon mass and resection in March or April of this year. * Chemotherapy every 2 weeks and next dose due today (06/17/19) family called to cancel. * History of hypertension and hypothyroidism * Hypokalemia with potassium of 3.2-> resolved Bronchoscopy results from May 27, 2019 are available: Lung, left lower, bronchioloalveolar lavage: Atypical lymphocytic infiltrate present. 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 No AFB seen. Culture results normal respiratory corina with many WBCs negative culture for acid-fast bacillus, no fungal growth, negative CMV PCR, negative for herpes simplex type I and II. Impression: Atelectasis of the left lower lobe Unresolved left lower lobe infiltrate Copious, white, thick secretions were found in the left lower lobe. Notable, white, thick secretions were found in the superior lingular segment of the left upper lobe and in the inferior lingular segment of the left upper lobe. Notable, white, thick secretions were found in the superior segment of the right lower lobe, in the medial basal segment of the right lower lobe, in the anterior basal segment of the right lower lobe, and the lateral basal segment of the right lower lobe, and in the posterior basal segment of the right lower lobe. The findings are suspicious for bacterial pneumonia. Findings are suspicious for community acquired pneumonia. Plan * Admit to floor * FiO2 to keep SPO2 above 90%. * Vancomycin and meropenem to cover MRSA and Pseudomonas. * Check MRSA screen and de-escalate if able * Hypertonic saline nebulizer and Mucinex. * Scheduled duonebs * RT and physiotherapy. * Sputum culture pending * Albuterol nebulizer as needed every 2 hours * CBC, CMP, mag, C-reactive protein daily * Reconcile home meds. * Monitor potassium - stable * VTE prophylaxis with Lovenox * CODE STATUS: Full code * Length of stay likely 1-2 more days. LOS >96hrs due to slow response to treatment. <Tanya,Volney L III - Last Filed: 06/17/19 09:56> - Patient Data Vitals - Most Recent: Last Vital Signs Temp 98.1 F 06/17/19 08:30 Pulse 68 06/17/19 08:30 Resp 24 H 06/17/19 08:30 BP 130/63 06/17/19 08:32 Pulse Ox 94 L 06/17/19 08:30 I&O - Last 24 Hours: Intake & Output 06/16/19 06/17/19 06/17/19 22:59 06:59 14:59 Intake Total 2301 800 Output Total 1600 900 Balance 701 -100 Lab Results Last 24 Hours: Laboratory Results - last 24 hr 06/14/19 06/15/19 06/16/19 Range/Units 17:55 02:25 11:46 WBC (4.23-9.07) K/mm3 RBC (4.63-6.08) M/mm3 Hgb (13.7-17.5) gm/dl Hct (40.1-51.0) % MCV (79.0-92.2) fl MCH (25.7-32.2) pg MCHC (32.2-35.5) g/dl RDW Std Deviation (35.1-43.9) fL Plt Count (163-337) K/mm3 MPV (9.4-12.3) fl Neut % (Auto) (34.0-67.9) % Lymph % (Auto) (21.8-53.1) % [place] % (Auto) (5.3-12.2) % Eos % (Auto) (0.8-7.0) Baso % (Auto) (0.1-1.2) % Neut # (Auto) (1.78-5.38) K/mm3 Lymph # (Auto) (1.32-3.57) K/mm3 [place] # (Auto) (0.30-0.82) K/mm3 Eos # (Auto) (0.04-0.54) K/mm3 Baso # (Auto) (0.01-0.08) K/mm3 Manual Slide Review Sodium (136-145) mEq/L Potassium (3.5-5.1) mEq/L Chloride (98-107) mEq/L Carbon Dioxide (21-32) mEq/L Anion Gap (5-15) BUN (7-18) mg/dL Creatinine (0.7-1.3) mg/dL Est Cr Clr Drug Dosing mL/min Estimated GFR (MDRD) (>60) mL/min BUN/Creatinine Ratio (14-18) Glucose (83-115) mg/dL Calcium (8.5-10.1) mg/dL Magnesium (1.8-2.4) mg/dl Total Bilirubin (0.2-1.0) mg/dL AST (15-37) U/L ALT (16-63) U/L Alkaline Phosphatase (46-116) U/L C-Reactive Protein (<1.0) mg/dL Total Protein (6.4-8.2) g/dl Albumin (3.4-5.0) g/dl Globulin gm/dL Albumin/Globulin Ratio (1-2) Procalcitonin 0.78 H (<0.10) ng/mL Vancomycin Trough 9.7 L (10.0-20.0) Adenovirus (PCR) Not detected (Not Detected) B. pertussis DNA (PCR) Not detected (Not Detected) B.parapertussis DNA PCR Not detected (Not Detected) C. pneumoniae DNA (PCR) Not detected (Not Detected) Coronavirus (PCR) Not detected (Not Detected) Human Metapneumovir PCR Not detected (Not Detected) Influenza A (RT-PCR) Not detected (Not Detected) Influenza B (RT-PCR) Not detected (Not Detected) M. pneumoniae (PCR) Not detected (Not Detected) Parainfluen 1,2,3,4 PCR Not detected (Not Detected) RSV (PCR) Not detected (Not Detected) Entero/Rhino (PCR) Detected H (Not Detected) 06/17/19 06/17/19 Range/Units 06:05 06:05 WBC 6.82 (4.23-9.07) K/mm3 RBC 4.16 L (4.63-6.08) M/mm3 Hgb 9.9 L (13.7-17.5) gm/dl Hct 33.5 L (40.1-51.0) % MCV 80.5 (79.0-92.2) fl MCH 23.8 L (25.7-32.2) pg MCHC 29.6 L (32.2-35.5) g/dl RDW Std Deviation 56.2 H (35.1-43.9) fL Plt Count 198 (163-337) K/mm3 MPV 9.8 (9.4-12.3) fl Neut % (Auto) 52.7 (34.0-67.9) % Lymph % (Auto) 29.5 (21.8-53.1) % [place] % (Auto) 13.6 H (5.3-12.2) % Eos % (Auto) 2.6 (0.8-7.0) Baso % (Auto) 0.6 (0.1-1.2) % Neut # (Auto) 3.59 (1.78-5.38) K/mm3 Lymph # (Auto) 2.01 (1.32-3.57) K/mm3 [place] # (Auto) 0.93 H (0.30-0.82) K/mm3 Eos # (Auto) 0.18 (0.04-0.54) K/mm3 Baso # (Auto) 0.04 (0.01-0.08) K/mm3 Manual Slide Review Abnormal smear Sodium 141 (136-145) mEq/L Potassium 3.7 (3.5-5.1) mEq/L Chloride 104 (98-107) mEq/L Carbon Dioxide 28 (21-32) mEq/L Anion Gap 12.7 (5-15) BUN 12 (7-18) mg/dL Creatinine 0.9 (0.7-1.3) mg/dL Est Cr Clr Drug Dosing 76.11 mL/min Estimated GFR (MDRD) > 60 (>60) mL/min BUN/Creatinine Ratio 13.3 L (14-18) Glucose 109 (83-115) mg/dL Calcium 8.6 (8.5-10.1) mg/dL Magnesium 2.0 (1.8-2.4) mg/dl Total Bilirubin 0.6 (0.2-1.0) mg/dL AST 12 L (15-37) U/L ALT 15 L (16-63) U/L Alkaline Phosphatase 119 H (46-116) U/L C-Reactive Protein 12.2 H* (<1.0) mg/dL Total Protein 6.0 L (6.4-8.2) g/dl Albumin 2.6 L (3.4-5.0) g/dl Globulin 3.4 gm/dL Albumin/Globulin Ratio 0.8 L (1-2) Procalcitonin (<0.10) ng/mL Vancomycin Trough (10.0-20.0) Adenovirus (PCR) (Not Detected) B. pertussis DNA (PCR) (Not Detected) B.parapertussis DNA PCR (Not Detected) C. pneumoniae DNA (PCR) (Not Detected) Coronavirus (PCR) (Not Detected) Human Metapneumovir PCR (Not Detected) Influenza A (RT-PCR) (Not Detected) Influenza B (RT-PCR) (Not Detected) M. pneumoniae (PCR) (Not Detected) Parainfluen 1,2,3,4 PCR (Not Detected) RSV (PCR) (Not Detected) Entero/Rhino (PCR) (Not Detected) Handy Results Last 24 Hours: Microbiology 06/16/19 09:30 Gram Stain - Final Sputum - Expectorated Sputum Culture - Preliminary 06/15/19 02:25 Streptococcus pneumoniae Antigen (M - Final Urine 06/15/19 02:25 Legionella Urinary Antigen - Final Urine 06/14/19 17:15 Aerobic Blood Culture - Preliminary Blood - Venous - Lab Draw NO GROWTH AFTER 2 DAYS Anaerobic Blood Culture - Preliminary NO GROWTH AFTER 2 DAYS 06/14/19 17:15 Aerobic Blood Culture - Preliminary Blood - Venous NO GROWTH AFTER 2 DAYS Anaerobic Blood Culture - Preliminary NO GROWTH AFTER 2 DAYS Med Orders - Current: Current Medications Acetaminophen (Tylenol) 650 mg PO Q4H PRN PRN Reason: Pain (Mild 1-3)/fever Last Admin: 06/15/19 16:18 Dose: 650 mg Albuterol (Proventil Neb Soln) 2.5 mg NEB Q2H PRN PRN Reason: Shortness Of Breath/wheezing Albuterol/Ipratropium (Duoneb 3.0-0.5 Mg/3 Ml) 3 ml NEB Q6HRRT PRN PRN Reason: wheezing/SOB/cough Last Admin: 06/17/19 09:48 Dose: 3 ml Amlodipine Besylate (Norvasc) 5 mg PO DAILY [facility] Last Admin: 06/17/19 08:32 Dose: 5 mg Aspirin (Aspirin) 81 mg PO DAILY [facility] Last Admin: 06/17/19 08:31 Dose: 81 mg Enoxaparin Sodium (Lovenox) 40 mg SUBCUT DAILY [facility] Last Admin: 06/17/19 08:31 Dose: 40 mg Guaifenesin (Mucinex) 600 mg PO TID [facility] Last Admin: 06/17/19 08:32 Dose: 600 mg Hydralazine HCl (Apresoline) 10 mg IVPUSH Q4H PRN PRN Reason: Hypertension Meropenem/Sodium Chloride 500 (mg/ Premix) 50 mls @ 100 mls/hr IV Q6H [facility] Last Admin: 06/17/19 09:36 Dose: 100 mls/hr Vancomycin HCl 1 gm/Vancomycin HCl 250 mg/ Sodium Chloride 250 mls @ 166.667 mls/hr IV Q12H [facility] Last Admin: 06/17/19 02:30 Dose: 166.667 mls/hr Ibuprofen (Motrin) 600 mg PO Q6H PRN PRN Reason: Pain (moderate 4-6) Levothyroxine Sodium (Synthroid) 88 mcg PO ACBREAKFAST [facility] Last Admin: 06/17/19 05:09 Dose: 88 mcg Melatonin (Melatonin) 9 mg PO BEDTIME PRN PRN Reason: Insomnia Ondansetron HCl (Zofran) 4 mg IV Q4H PRN PRN Reason: Nausea/Vomiting Sodium Chloride (Sodium Chloride 3%) 3 ml NEB QIDRT [facility] Last Admin: 06/17/19 09:48 Dose: 3 ml Vancomycin HCl (Pharmacy To Dose - Vancomycin) 1 dose .XX ASDIRECTED [facility] Discontinued Medications Acetaminophen (Tylenol) 975 mg PO NOW ONE Stop: 06/14/19 17:28 Last Admin: 06/14/19 18:10 Dose: 975 mg Dextrose/Sodium Chloride (Dextrose 5%-Normal Saline) 1,000 mls @ 75 mls/hr IV ASDIRECTED [facility] Last Admin: 06/14/19 18:08 Dose: 75 mls/hr Linezolid 600 mg/ Premix 300 mls @ 300 mls/hr IV ONETIME ONE Stop: 06/14/19 18:51 Last Admin: 06/14/19 18:09 Dose: 300 mls/hr Vancomycin HCl 1.75 gm/ Sodium (Chloride) 500 mls @ 250 mls/hr IV ONETIME ONE Stop: 06/15/19 00:29 Last Admin: 06/14/19 23:43 Dose: 250 mls/hr Vancomycin HCl 1 gm/ Sodium (Chloride) 100 mls @ 100 mls/hr IV Q12H [facility] Last Admin: 06/16/19 13:27 Dose: Not Given Potassium Chloride 10 meq/ (Premix) 100 mls @ 100 mls/hr IV Q1H [facility] Stop: 06/16/19 14:14 Last Admin: 06/16/19 15:25 Dose: 100 mls/hr Sodium Chloride (Normal Saline) 1,000 mls @ 75 mls/hr IV ASDIRECTED [facility] Last Admin: 06/16/19 09:05 Dose: 75 mls/hr Vancomycin HCl 1 gm/Vancomycin HCl 250 mg/ Sodium Chloride 250 mls @ 250 mls/ hr IV Q12H [facility] Last Admin: 06/16/19 15:02 Dose: Not Given Meropenem (Merrem) 1 gm IVPUSH ONETIME ONE Stop: 06/14/19 19:38 Last Admin: 06/14/19 21:36 Dose: 1 gm Meropenem (Merrem) 1 gm IVPUSH Q8H [facility] Potassium Chloride (Potassium Chloride Solution) 20 meq PO DAILY [facility] Potassium Chloride (Potassium Chloride Solution) 20 meq PO ONETIME ONE Stop: 06/15/19 11:34 Last Admin: 06/15/19 12:18 Dose: 20 meq Sepsis Event Note - Focused Exam Vital Signs: Vital Signs Temp Pulse Resp BP Pulse Ox Pulse Ox 06/17/19 08:32 130/63 06/17/19 08:30 98.1 F 68 24 H 130/63 94 L 06/17/19 06:28 91 L 06/17/19 05:08 98.2 F 67 18 130/84 97 Date Exam was Performed: 06/17/19 Time Exam was Performed: 09:55 - Problem List Review Problem List Initiated/Reviewed/Updated: Yes - My Orders Last 24 Hours: My Active Orders 06/18/19 01:30 VANCOMYCIN TROUGH [CHEM] Timed 06/18/19 05:11 C-REACTIVE PROTEIN [CHEM] AM CBC WITH AUTO DIFF [HEME] AM COMPREHENSIVE METABOLIC PN,CMP [CHEM] AM MAGNESIUM [CHEM] AM 06/16/19 14:00 Vancomycin 1 gm Vancomycin 250 mg Sodium Chloride 0.9% [Normal Saline] 250 ml IV Q12H - Plan Plan:: Patient was seen, examined, and evaluated personally and I agree with the above findings, assessment, and plan.
[2019-06-17] MEDS: Enoxaparin 40 MG/0.4 ML Syringe SUBCUT SCH (08:31)
[2019-06-17] MEDS: Aspirin 81 MG Tab.Chew PO SCH (08:31)
[2019-06-17] MEDS: guaiFENesin 600 MG Tab.ER PO SCH ×3 (08:32→21:26)
[2019-06-17] MEDS: amLODIPine 5 MG Tab PO SCH (08:32)
[2019-06-17] MEDS: Albuterol/Ipratropium 3.0-0.5 MG/3 ML Neb Soln NEB SCH ×2 (15:10→20:46)
[2019-06-18] MEDS: Albuterol/Ipratropium 3.0-0.5 MG/3 ML Neb Soln NEB SCH ×4 (03:10→21:02)
[2019-06-18] MEDS: Sodium Chloride 3% Inhalation Soln 4 ML Neb NEB SCH ×4 (03:10→21:02)
[2019-06-18] MEDS: Meropenem Premix 500 MG in Premix Bag 1 BAG IV SCH ×3 (05:18→15:55)
[2019-06-18] MEDS: Levothyroxine 88 MCG Tab PO SCH (05:18)
[2019-06-18] MEDS ORDERED: Potassium Chloride 20 MEQ Tab.ER PO SCH (09:00)
[2019-06-18] MEDS: guaiFENesin 600 MG Tab.ER PO SCH ×3 (09:17→21:05)
[2019-06-18] MEDS: amLODIPine 5 MG Tab PO SCH (09:17)
[2019-06-18] MEDS: Enoxaparin 40 MG/0.4 ML Syringe SUBCUT SCH (09:17)
[2019-06-18] MEDS: Aspirin 81 MG Tab.Chew PO SCH (09:17)
[2019-06-18] MEDS: Potassium Chloride 10% 20 MEQ/15 ML Soln 15 ML UD Cup PO SCH ×2 (09:46→21:05)
--- NOTE | 2019-06-18 18:50 | PCM.PN ---
- General Info Date of Service: 06/18/19 Subjective Update: Feeling ok Slept ok Tolerating diet Ambulating with assistance Still with O2 via NC BM yesterday - Patient Data Vitals - Most Recent: Last Vital Signs Temp 97.9 F 06/18/19 16:04 Pulse 64 06/18/19 16:04 Resp 20 06/18/19 16:04 BP 135/70 06/18/19 16:04 Pulse Ox 92 L 06/18/19 16:04 Weight - Most Recent: 96.388 kg - Exam General: Alert, Oriented, Cooperative, No Acute Distress HEENT: Pupils Equal, Pupils Reactive Neck: Supple, No JVD Lungs: Decreased Breath Sounds, Crackles. No: Rales, Rhonchi, Rub, Wheezing Cardiovascular: Regular Rate, Regular Rhythm, No Murmurs. No: Gallops, Rubs GI/Abdominal Exam: Normal Bowel Sounds, Soft, Non-Tender Back Exam: Normal Inspection Extremities: Normal Inspection Sepsis Event Note - Evaluation Sepsis Screening Result: No Definite Risk - Focused Exam Vital Signs: Vital Signs Temp Pulse Resp BP Pulse Ox Pulse Ox 06/18/19 16:04 97.9 F 64 20 135/70 92 L 06/18/19 15:12 97 06/18/19 11:05 99.0 F 66 24 H 135/65 94 L 06/18/19 09:17 130/63 06/18/19 09:10 97.9 F 67 24 H 130/63 93 L 06/18/19 08:56 97 Date Exam was Performed: 06/18/19 Time Exam was Performed: 18:59 - Problem List & Annotations (1) Bilateral pneumonia SNOMED Code(s): 036056229 Code(s): J18.9 - PNEUMONIA, UNSPECIFIED ORGANISM Status: Acute Priority: High Current Visit: Yes Qualifiers: Pneumonia type: due to unspecified organism Lung location: lower lobe of lung Qualified Code(s): J18.9 - Pneumonia, unspecified organism (2) Hypoxia SNOMED Code(s): 260987939 Code(s): R09.02 - HYPOXEMIA Status: Acute Priority: High Current Visit : Yes (3) Rhinovirus infection SNOMED Code(s): 84155353 Code(s): B34.8 - OTHER VIRAL INFECTIONS OF UNSPECIFIED SITE Status: Acute Priority: High Current Visit: Yes (4) Mantle cell lymphoma SNOMED Code(s): 807611455, 326102968 Code(s): C83.10 - MANTLE CELL LYMPHOMA, UNSPECIFIED SITE Status: Chronic Priority: High Current Visit: Yes Qualifiers: Lymphoma site: unspecified region Qualified Code(s): C83.10 - Mantle cell lymphoma, unspecified site (5) Hypertension SNOMED Code(s): 16691401 Code(s): I10 - ESSENTIAL (PRIMARY) HYPERTENSION Status: Chronic Priority : Medium Current Visit: No Qualifiers: Hypertension type: unspecified Qualified Code(s): I10 - Essential (primary ) hypertension (6) Hypothyroidism SNOMED Code(s): 32298624 Code(s): E03.9 - HYPOTHYROIDISM, UNSPECIFIED Status: Chronic Priority: Medium Current Visit: No Qualifiers: Hypothyroidism type: unspecified Qualified Code(s): E03.9 - Hypothyroidism , unspecified (7) Anemia SNOMED Code(s): 241172217 Code(s): D64.9 - ANEMIA, UNSPECIFIED Status: Acute Current Visit: Yes (8) Hypokalemia SNOMED Code(s): 67351166 Code(s): E87.6 - HYPOKALEMIA Status: Acute Current Visit: Yes (9) Hypoalbuminemia SNOMED Code(s): 590002858 Code(s): E88.09 - OTH DISORDERS OF PLASMA-PROTEIN METABOLISM, NEC Status: Acute Current Visit: Yes - Problem List Review Problem List Initiated/Reviewed/Updated: Yes - Plan Plan:: Bilateral pneumonia 2/2 Rhinovirus infection Hypoxia Sputum culture finalized negative + Rhinovirus - Legionella, mycoplasma, S. pneumonia PLAN - D/C meropenem - Continue RT - Continue IS - Continue NC Hypertension BP trend 123-136/59-84 PLAN - Continue current management Hypothyroidism No acute issues PLAN - Continue current management PROPHYLAXIS DVT- Lovenox GI- not indicated CODE STATUS: FULL CODE DISPOSITION: Continue current management, encourage ambulation, if patient continues to improve will d/c in AM.
[2019-06-19] MEDS: Albuterol/Ipratropium 3.0-0.5 MG/3 ML Neb Soln NEB SCH ×2 (02:54→08:13)
[2019-06-19] MEDS: Sodium Chloride 3% Inhalation Soln 4 ML Neb NEB SCH ×2 (02:54→08:13)
[2019-06-19] MEDS: Levothyroxine 88 MCG Tab PO SCH (06:10)
[2019-06-19] MEDS: Aspirin 81 MG Tab.Chew PO SCH (08:39)
[2019-06-19] MEDS: amLODIPine 5 MG Tab PO SCH (08:40)
[2019-06-19] MEDS: guaiFENesin 600 MG Tab.ER PO SCH (08:41)
[2019-06-19] MEDS: Enoxaparin 40 MG/0.4 ML Syringe SUBCUT SCH (08:41)
--- NOTE | 2019-06-19 11:41 | PCM.DCSUM1 ---
Discharge Summary - Hospital Course HPI Initial Comments: Patient comes in today after having a fever kelsey 100.5 today. Patient has a history of lymphoma and chronic left lower lobe pneumonia. Duong was hospitalized at [facility] in [place] approximately 3 months ago with pneumonia. He states he was there for 1 week and went home on antibiotics. He has been on ciprofloxacin since then and every time he stops it he seems to get sick again. He states he has been on it for approximately 3 weeks in total. Yesterday he was seen at the clinic and diagnosed with pneumonia. He was given azithromycin. He was told by his provider that if he developed a fever to go to the hospital. Patient states he had a bronchoscopy approximately 3 weeks ago , but has not been given the results and has not followed up. Dr. Albert was the instrument specialist. Patient was diagnosed with lymphoma 2 and half years ago. This first started lump on his left leg. Recently patient was diagnosed with mass on his colon. He did have surgery for excision. He does not know what exactly that was. This happened in March or April. He has been getting chemotherapy every 2 weeks and his next dose of chemotherapy is in 3 days. When the patient arrived in the emergency room his oxygen saturations were 85% and they got up to 96 to 94% on 3 L nasal cannula. He had a fever of 101.5. Patient had a septic work-up, which was negative, and he was given Zyvox 600 mg IV. Blood cultures x2 were collected. I was contacted this point and I recommended coverage for Pseudomonas. Patient was given meropenem. Lab work in the emergency room: WBC 21, hemoglobin 11, platelet count 190, toxic granulation, INR 1.28 and APTT 35 with a PT 13.8. ESR 22, no anion gap. Troponin was less than 0.017 with a proBNP of 574. Sodium 140, potassium 3.4, chloride 104, carbon dioxide 28, BUN 17, creatinine of 1.1, AST 9, ALT 14, alkaline phosphatase 178. Chest x-ray showed diffuse interstitial fibrosis with left lower lobe pneumonia. There might be a small right lower lobe pneumonia there. Bronchoscopy results from May 27, 2019 are available: Lung, left lower, bronchioloalveolar lavage: Atypical lymphocytic infiltrate present. 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 No AFB seen. Culture results normal respiratory corina with many WBCs negative culture for acid-fast bacillus, no fungal growth, negative CMV PCR, negative for herpes simplex type I and II. Impression: Atelectasis of the left lower lobe Unresolving left lower lobe infiltrate Copious, white, thick secretions were found in the left lower lobe. Notable, white, thick secretions were found in the superior lingular segment of the left upper lobe and in the inferior lingular segment of the left upper lobe. Notable, white, thick secretions were found in the superior segment of the right lower lobe, in the medial basal segment of the right lower lobe, in the anterior basal segment of the right lower lobe, and the lateral basal segment of the right lower lobe, and in the posterior basal segment of the right lower lobe. The findings are suspicious for bacterial pneumonia. Findings are suspicious for community acquired pneumonia. Diagnosis: Stroke: No - Discharge Data Discharge Date: 06/19/19 (Admit date: 06/14/19) Discharge Disposition: Home, Self-Care 01 Condition: Fair - Referral to Home Health Primary Care Physician: Ki Obrien MD - Discharge Diagnosis/Problem(s) (1) Acute febrile illness SNOMED Code(s): 589018050 ICD Code: R50.9 - FEVER, UNSPECIFIED Status: Resolved Priority: High (2) Bilateral pneumonia SNOMED Code(s): 775967074 ICD Code: J18.9 - PNEUMONIA, UNSPECIFIED ORGANISM Status: Resolved Priority: High Qualifiers: Pneumonia type: due to unspecified organism Lung location: lower lobe of lung Qualified Code(s): J18.9 - Pneumonia, unspecified organism (3) Hypoxia SNOMED Code(s): 615299570 ICD Code: R09.02 - HYPOXEMIA Status: Acute Priority: High (4) Mantle cell lymphoma SNOMED Code(s): 724061460, 110924133 ICD Code: C83.10 - MANTLE CELL LYMPHOMA, UNSPECIFIED SITE Status: Chronic Priority: High Qualifiers: Lymphoma site: unspecified region Qualified Code(s): C83.10 - Mantle cell lymphoma, unspecified site (5) Hypothyroidism SNOMED Code(s): 59521133 ICD Code: E03.9 - HYPOTHYROIDISM, UNSPECIFIED Status: Chronic Priority: Medium Qualifiers: Hypothyroidism type: unspecified Qualified Code(s): E03.9 - Hypothyroidism , unspecified (6) Hypertension SNOMED Code(s): 98385598 ICD Code: I10 - ESSENTIAL (PRIMARY) HYPERTENSION Status: Chronic Priority : Medium Qualifiers: Hypertension type: unspecified Qualified Code(s): I10 - Essential (primary ) hypertension (7) Rhinovirus infection SNOMED Code(s): 25514282 ICD Code: B34.8 - OTHER VIRAL INFECTIONS OF UNSPECIFIED SITE Status: Acute Priority: High - Patient Summary/Data Consults: Consultations 06/14/19 20:50 Respiratory Care Assess and Treatment [CONS] Routine 06/16/19 08:11 Consult to Spiritual Care [CONS] Routine 06/16/19 08:12 Consult to Case Management/Maintenance Painter [CONS] Routine 06/16/19 08:37 Consult to Occupational Therapy [OT Evaluation and Treatment] [CONS] Routine PT Evaluation and Treatment [CONS] Routine Labs Pending at D/C: None Recommended Follow-up Testing/Procedures: Follow-up with primary care provider within 5-7 days of discharge, sooner if needed. Follow-up with pulmonology as scheduled Follow-up with oncology after discharge as directed. Patient will need to make appointment after discharge per oncology recruiting scheduler. Hospital Course: Dmitry was admitted to the hospital floor with pneumonia and fevers. He does have a history of lymphoma and chronic left lower lobe pneumonia. He does have a port in place in his left chest and has been seeing pulmonology and oncology. Oncology appointment was supposed be during his time while in our hospital and that appointment was canceled. Patient's is going to follow-up with oncologist and reschedule after discharge as they would not reschedule while he was in her hospital. Bronchoscopy results from May 27, 2019 were listed on the initial HPI. He was treated with duo nebs, hypertonic saline nebulizers , 5 days of meropenem, and 3 days of vancomycin. His aspiratory viral culture returned positive for Entero/rhinovirus and antibiotics were stopped. Infectious work-up was otherwise negative. Blood cultures remain negative. Influenza, Legionella, Streptococcus, and MRSA screen were all negative. Potassium did dip here and this was supplemented however he is on home supplementation and this was continued. WBC and CRP did trend down during his stay. He reported he felt quite a bit better. He was aware that due to his chronic conditions he likely would not feel back to 100% on discharge. He was instructed to continue to utilize his incentive spirometry and Acapella. He does have an appointment with pulmonology within the next few weeks. He was instructed to follow-up with his primary care provider within 5 to 7 days of discharge. He does have as needed home oxygen and was instructed to monitor his saturations and utilize oxygen as needed to keep above 90%. He voiced understanding of this. His port was de-accessed prior to discharge and flushed with heparin. He did not require oxygen on discharge, although as noted he does have as needed orders already. Home medications were continued. He was sent with a prescription for twice daily Mucinex. He was discharged without incident. - Patient Instructions Diet: Usual Diet as Tolerated Activity: As Tolerated Showering/Bathing: May Shower Notify Provider of: Fever, Increased Pain, Nausea and/or Vomiting Other/Special Instructions: Follow-up with primary care provider within 5-7 days of discharge, sooner if needed. Re-schedule with oncology as we discussed. Follow-up with pulmonology as scheduled. Home oxygen - adjust to keep oxygen saturations above 90%. Continue to utilize your incentive spirometer (clear/blue device you inhale through) and acapella (green device you blow through) until symptoms resolve or improve. Resume home medications as directed. Should symtpoms return or worsen conctact your primary care provider or return to the emergency department. - Discharge Plan *PRESCRIPTION DRUG MONITORING PROGRAM REVIEWED*: Not Applicable *COPY OF PRESCRIPTION DRUG MONITORING REPORT IN PATIENT MAR[place]: Not Applicable Prescriptions/Med Rec: guaiFENesin [Mucinex] 600 mg PO Q12H #12 tab.er Home Medications: Home Meds Aspirin 81 mg PO DAILY 06/14/19 [History] Levothyroxine [Synthroid] 88 mcg PO DAILY 06/14/19 [History] Potassium Chloride 20 meq PO DAILY 06/15/19 [History] amLODIPine [Norvasc] 1 tab PO DAILY 06/15/19 [History] guaiFENesin [Mucinex] 600 mg PO Q12H #12 tab.er 06/19/19 [Rx] Oxygen Therapy Mode: Nasal Cannula Oxygen Flow Rate (L/min): 1 Maintain SpO2% greater than: 90 Patient Handouts: Fever, Adult, Hypoxemia, Sepsis, Adult, Home Oxygen Use, Adult Forms: ED Department Discharge Referrals: Ki Obrien MD [Primary Care Provider] - 06/27/19 7:30 am (please attend the scheduled follow up appointment as listed with your primary care provider.) Chirag Rodriguez NP [Ordering Only Provider] - 07/02/19 3:00 pm (This is in [facility] time. This is follow up with Pulmonology.) - Discharge Summary/Plan Comment DC Time >30 min.: Yes (45 mins) - General Info Date of Service: 06/19/19 Admission Dx/Problem (Free Text: Admission Diagnosis/Problem Admission Diagnosis/Problem Acute febrile illness Functional Status: Reports: Pain Controlled, Tolerating Diet, Ambulating, Urinating, Incentive Spirometry, Other (Acapella ). Denies: New Symptoms - Review of Systems General: Reports: No Symptoms. Denies: Fever, Weakness, Fatigue, Malaise, Chills HEENT: Reports: No Symptoms. Denies: Headaches, Sore Throat Pulmonary: Reports: Cough, Sputum. Denies: Shortness of Breath, Wheezing Cardiovascular: Reports: Dyspnea on Exertion. Denies: Chest Pain, Palpitations , Edema Gastrointestinal: Reports: No Symptoms. Denies: Abdominal Pain, Constipation, Diarrhea, Nausea, Vomiting Genitourinary: Reports: No Symptoms. Denies: Pain Musculoskeletal: Reports: No Symptoms Skin: Reports: No Symptoms. Denies: Cyanosis Neurological: Reports: No Symptoms. Denies: Pre-Existing Deficit, Trouble Speaking, Gait Disturbance Psychiatric: Reports: No Symptoms - Patient Data Vitals - Most Recent: Last Vital Signs Temp 98.1 F 06/19/19 11:10 Pulse 74 06/19/19 11:10 Resp 24 H 06/19/19 11:10 BP 134/85 06/19/19 11:10 Pulse Ox 96 06/19/19 11:10 Weight - Most Recent: 212 lb 8 oz I&O - Last 24 hours: Intake & Output 06/18/19 06/19/19 06/19/19 22:59 06:59 14:59 Intake Total 1250 500 Output Total 650 600 Balance 600 -100 Lab Results - Last 24 hrs: Laboratory Results - last 24 hr 06/19/19 06/19/19 Range/Units 04:50 04:50 WBC 4.58 (4.23-9.07) K/mm3 RBC 3.87 L (4.63-6.08) M/mm3 Hgb 9.2 L (13.7-17.5) gm/dl Hct 31.3 L (40.1-51.0) % MCV 80.9 (79.0-92.2) fl MCH 23.8 L (25.7-32.2) pg MCHC 29.4 L (32.2-35.5) g/dl RDW Std Deviation 56.3 H (35.1-43.9) fL Plt Count 263 (163-337) K/mm3 MPV 9.3 L (9.4-12.3) fl Neut % (Auto) 46.3 (34.0-67.9) % Lymph % (Auto) 23.6 (21.8-53.1) % [place] % (Auto) 16.8 H (5.3-12.2) % Eos % (Auto) 8.5 H (0.8-7.0) Baso % (Auto) 2.4 H (0.1-1.2) % Neut # (Auto) 2.12 (1.78-5.38) K/mm3 Lymph # (Auto) 1.08 L (1.32-3.57) K/mm3 [place] # (Auto) 0.77 (0.30-0.82) K/mm3 Eos # (Auto) 0.39 (0.04-0.54) K/mm3 Baso # (Auto) 0.11 H (0.01-0.08) K/mm3 Manual Slide Review Abnormal smear Sodium 143 (136-145) mEq/L Potassium 3.4 L (3.5-5.1) mEq/L Chloride 105 (98-107) mEq/L Carbon Dioxide 30 (21-32) mEq/L Anion Gap 11.4 (5-15) BUN 11 (7-18) mg/dL Creatinine 0.9 (0.7-1.3) mg/dL Est Cr Clr Drug Dosing 76.11 mL/min Estimated GFR (MDRD) > 60 (>60) mL/min BUN/Creatinine Ratio 12.2 L (14-18) Glucose 106 (83-115) mg/dL Calcium 8.5 (8.5-10.1) mg/dL Phosphorus 3.3 (2.6-4.7) mg/dL Magnesium 2.0 (1.8-2.4) mg/dl CODY Results - Last 24 hrs: Microbiology 06/14/19 17:15 Aerobic Blood Culture - Preliminary Blood - Venous - Lab Draw NO GROWTH AFTER 4 DAYS Anaerobic Blood Culture - Preliminary NO GROWTH AFTER 4 DAYS 06/14/19 17:15 Aerobic Blood Culture - Preliminary Blood - Venous NO GROWTH AFTER 4 DAYS Anaerobic Blood Culture - Preliminary NO GROWTH AFTER 4 DAYS 06/16/19 09:30 Gram Stain - Final Sputum - Expectorated Sputum Culture - Final NORMAL RESPIRATORY CORINA 2 DAYS Med Orders - Current: Current Medications Acetaminophen (Tylenol) 650 mg PO Q4H PRN PRN Reason: Pain (Mild 1-3)/fever Last Admin: 06/15/19 16:18 Dose: 650 mg Albuterol (Proventil Neb Soln) 2.5 mg NEB Q2H PRN PRN Reason: Shortness Of Breath/wheezing Albuterol/Ipratropium (Duoneb 3.0-0.5 Mg/3 Ml) 3 ml NEB Q6HRRT [facility] Last Admin: 06/19/19 08:13 Dose: 3 ml Amlodipine Besylate (Norvasc) 5 mg PO DAILY [facility] Last Admin: 06/19/19 08:40 Dose: 5 mg Aspirin (Aspirin) 81 mg PO DAILY [facility] Last Admin: 06/19/19 08:39 Dose: 81 mg Enoxaparin Sodium (Lovenox) 40 mg SUBCUT DAILY [facility] Last Admin: 06/19/19 08:41 Dose: 40 mg Guaifenesin (Mucinex) 600 mg PO TID [facility] Last Admin: 06/19/19 08:41 Dose: 600 mg Hydralazine HCl (Apresoline) 10 mg IVPUSH Q4H PRN PRN Reason: Hypertension Ibuprofen (Motrin) 600 mg PO Q6H PRN PRN Reason: Pain (moderate 4-6) Levothyroxine Sodium (Synthroid) 88 mcg PO ACBREAKFAST [facility] Last Admin: 06/19/19 06:10 Dose: 88 mcg Melatonin (Melatonin) 9 mg PO BEDTIME PRN PRN Reason: Insomnia Ondansetron HCl (Zofran) 4 mg IV Q4H PRN PRN Reason: Nausea/Vomiting Potassium Chloride (Klor-Con M20) 40 meq PO ONETIME ONE Stop: 01/02/20 12:01 Sodium Chloride (Sodium Chloride 3%) 3 ml NEB Q6HRRT [facility] Last Admin: 06/19/19 08:13 Dose: 3 ml Discontinued Medications Acetaminophen (Tylenol) 975 mg PO NOW ONE Stop: 06/14/19 17:28 Last Admin: 06/14/19 18:10 Dose: 975 mg Albuterol/Ipratropium (Duoneb 3.0-0.5 Mg/3 Ml) 3 ml NEB Q6HRRT PRN PRN Reason: wheezing/SOB/cough Last Admin: 06/17/19 09:48 Dose: 3 ml Dextrose/Sodium Chloride (Dextrose 5%-Normal Saline) 1,000 mls @ 75 mls/hr IV ASDIRECTED [facility] Last Admin: 06/14/19 18:08 Dose: 75 mls/hr Linezolid 600 mg/ Premix 300 mls @ 300 mls/hr IV ONETIME ONE Stop: 06/14/19 18:51 Last Admin: 06/14/19 18:09 Dose: 300 mls/hr Meropenem/Sodium Chloride 500 (mg/ Premix) 50 mls @ 100 mls/hr IV Q6H [facility] Last Admin: 06/18/19 15:55 Dose: 100 mls/hr Vancomycin HCl 1.75 gm/ Sodium (Chloride) 500 mls @ 250 mls/hr IV ONETIME ONE Stop: 06/15/19 00:29 Last Admin: 06/14/19 23:43 Dose: 250 mls/hr Vancomycin HCl 1 gm/ Sodium (Chloride) 100 mls @ 100 mls/hr IV Q12H [facility] Last Admin: 06/16/19 13:27 Dose: Not Given Potassium Chloride 10 meq/ (Premix) 100 mls @ 100 mls/hr IV Q1H [facility] Stop: 06/16/19 14:14 Last Admin: 06/16/19 15:25 Dose: 100 mls/hr Sodium Chloride (Normal Saline) 1,000 mls @ 75 mls/hr IV ASDIRECTED [facility] Last Admin: 06/16/19 09:05 Dose: 75 mls/hr Vancomycin HCl 1 gm/Vancomycin HCl 250 mg/ Sodium Chloride 250 mls @ 250 mls/ hr IV Q12H [facility] Last Admin: 06/16/19 15:02 Dose: Not Given Vancomycin HCl 1 gm/Vancomycin HCl 250 mg/ Sodium Chloride 250 mls @ 166.667 mls/hr IV Q12H [facility] Last Admin: 06/17/19 02:30 Dose: 166.667 mls/hr Meropenem (Merrem) 1 gm IVPUSH ONETIME ONE Stop: 06/14/19 19:38 Last Admin: 06/14/19 21:36 Dose: 1 gm Meropenem (Merrem) 1 gm IVPUSH Q8H [facility] Potassium Chloride (Potassium Chloride Solution) 20 meq PO DAILY [facility] Potassium Chloride (Potassium Chloride Solution) 20 meq PO ONETIME ONE Stop: 06/15/19 11:34 Last Admin: 06/15/19 12:18 Dose: 20 meq Potassium Chloride (Klor-Con M20) 20 meq PO BID [facility] Stop: 06/18/19 21:01 Last Admin: 06/18/19 10:48 Dose: Not Given Potassium Chloride (Potassium Chloride Solution) 20 meq PO BID [facility] Stop: 06/18/19 21:01 Last Admin: 06/18/19 21:05 Dose: 20 meq Sodium Chloride (Sodium Chloride 3%) 3 ml NEB QIDRT [facility] Last Admin: 06/17/19 09:48 Dose: 3 ml Vancomycin HCl (Pharmacy To Dose - Vancomycin) 1 dose .XX ASDIRECTED [facility] - Exam Quality Assessment: Reports: DVT Prophylaxis. Denies: Supplemental Oxygen General: Reports: Alert, Oriented, Cooperative, No Acute Distress HEENT: Reports: Pupils Equal, Pupils Reactive, Mucous Membr. Moist/[place] Neck: Reports: Supple, Trachea Midline Lungs: Reports: Normal Respiratory Effort, Decreased Breath Sounds, Crackles Cardiovascular: Reports: Regular Rate, Regular Rhythm GI/Abdominal Exam: Normal Bowel Sounds, Soft, Non-Tender, No Distention, No Abnormal Bruit (Male) Exam: Deferred Rectal (Males) Exam: Deferred Back Exam: Reports: Normal Inspection, Full Range of Motion Extremities: Normal Inspection, Normal Range of Motion, Non-Tender, No Pedal Edema, Normal Capillary Refill Skin: Reports: Warm, Dry, Intact Neurological: Reports: No New Focal Deficit Psy/Mental Status: Reports: Alert, Normal Affect, Normal Mood
[2019-06-19] MEDS ORDERED: Potassium Chloride 20 MEQ Tab.ER PO ONE (12:00)
== END 2019-06-19 14:13 | disposition home or self-care (01) | DRG 194 ==
LOC: JD.ED 16:56 → JD.MS 19:36
PROVIDERS: ADMIT Family Medicine; ATTEND Family Medicine
DX: J12.89 Other viral pneumonia (principal); C83.10 Mantle cell lymphoma, unspecified site; I50.9 Heart failure, unspecified; C85.80 Other specified types of non-Hodgkin lymphoma, unspecified site; Z85.038 Personal history of other malignant neoplasm of large intestine; Z85.46 Personal history of malignant neoplasm of prostate; R09.02 Hypoxemia; Z90.79 Acquired absence of other genital organ(s); I10 Essential (primary) hypertension; E03.9 Hypothyroidism, unspecified; J98.09 Other diseases of bronchus, not elsewhere classified; E87.6 Hypokalemia; B34.8 Other viral infections of unspecified site; D64.9 Anemia, unspecified; Z88.0 Allergy status to penicillin; Z91.041 Radiographic dye allergy status; Z88.2 Allergy status to sulfonamides; Z79.82 Long term (current) use of aspirin; Z79.890 Hormone replacement therapy; Z79.899 Other long term (current) drug therapy; Z90.49 Acquired absence of other specified parts of digestive tract
CPT/HCPCS: 36415; 71045; 80053; 83735; 83880; 84145; 84484; 85007; 85027; 85610; 85652; 85730; 87040 ×2; 87804 ×2; 93005; A9270; J2020; J7042; 80048; 80202; 84100; 85025; 86140; 87070; 87205; 87486; 87581; 87632; 87641; 87798; 87899; 93010; 94640; 94667; 94668; 94760; 94761; 96365; 96523; 97161-GP; 97165-GO; 99285; 99285-25; J1642; J1650; J2185; J3370; J3480; J7030; J7040; J7050; J7620-GY

== ENCOUNTER 2019-06-24 09:44 | Emergency (ER) | payer MEDICARE, OTHER ==
[2019-06-24] MEDS ORDERED: diphenhydrAMINE 50 MG/ML SDV IVPUSH ONE (10:12)
[2019-06-24] MEDS ORDERED: Sodium Chloride 0.9% 10 ML Syringe FLUSH PRN (10:28)
[2019-06-24] MEDS ORDERED: cefTRIAXone 2 GM in Sodium Chloride 0.9% 100 ML IV ONE (10:32)
--- NOTE | 2019-06-24 10:51 | EDM.PDOC ---
<Casie Greenberg - Last Filed: 06/24/19 11:26> ED HPI GENERAL MEDICAL PROBLEM - General Chief Complaint: Respiratory Problem Stated Complaint: Fever, Productive Cough, Chest Pain Time Seen by Provider: 06/24/19 10:05 Source of Information: Reports: Patient, Family History Limitations: Reports: No Limitations - History of Present Illness INITIAL COMMENTS - FREE TEXT/NARRATIVE: 79-year-old male presents with productive cough and left sided chest pressure that has not improved since the last hospital discharge. He states that he has had a productive cough and a "full chest" for about a year, was hospitalized in March 2019 at [facility] in [place] for Pneumonia, and hospitalized here around 2 weeks ago for pneumonia again. He was discharged Jun. He states he has been taking mucinex since discharge but no antibiotics. He also utilizes oxygen via a nasal canula at night. During his last hospitalization, he noted that the pneumonia was improving while in the hospital but a day after discharge, the productive cough worsened. His states that he has a history lymphoma and colon cancer and stated that [facility] was concerned the lung problems may be related to his lymphoma. Onset: Gradual Duration: Constant Location: Reports: Chest Quality: Reports: Pressure (left lower chest pressure) Severity: Moderate Improves with: Reports: None Worsens with: Reports: None Associated Symptoms: Reports: cough w sputum, Fever/Chills, Malaise, Shortness of Breath Treatments APPOINTMENT SCHEDULER: Reports: Oxygen Other Treatments APPOINTMENT SCHEDULER: Mucinex Left Lower Chest Pain Score (Numeric/FACES): 0 (Intermittent, more pressure than pain) - Related Data Allergies Allergy/AdvReac Type Severity Reaction Status Date / Time Penicillins Allergy Unknown Rash Verified 06/24/19 10:06 Iodinated Contrast Media Allergy Rash Verified 06/24/19 10:06 Sulfa (Sulfonamide Allergy Rash Verified 06/24/19 10:06 Antibiotics) potassium AdvReac Diarrhea Verified 06/24/19 10:06 Home Meds: Home Meds Aspirin 81 mg PO DAILY 06/14/19 [History] Levothyroxine [Synthroid] 88 mcg PO DAILY 06/14/19 [History] Potassium Chloride 20 meq PO DAILY 06/15/19 [History] amLODIPine [Norvasc] 5 mg PO DAILY 06/15/19 [History] guaiFENesin [Mucinex] 600 mg PO Q12H PRN 06/24/19 [History] Past Medical History HEENT History: Reports: Sinusitis Other HEENT History: glasses Cardiovascular History: Reports: Other (See Below) Respiratory History: Reports: Pneumonia, Recurrent, Other (See Below) Gastrointestinal History: Reports: Other (See Below) Genitourinary History: Reports: Other (See Below) Other Genitourinary History: prostate removeal Musculoskeletal History: Reports: Other (See Below) Other Musculoskeletal History: r radius fracture, r foot fracture Endocrine/Metabolic History: Reports: Hypokalemia, Hypothyroidism Oncologic (Cancer) History: Reports: Lymphoma, Prostate Other Oncologic History: Pt states he had lymphona removed from his colon as well as his prostate. - Infectious Disease History Infectious Disease History: Reports: Other (See Below) (Chronic recurrent pneumonia primarily left lung for the last 3-4 months.) - Past Surgical History HEENT Surgical History: Reports: Tonsillectomy GI Surgical History: Reports: Appendectomy Social & Family History - Family History Family Medical History: Noncontributory - Tobacco Use Smoking Status *Q: Never Smoker - Caffeine Use Caffeine Use: Reports: Soda Other Caffeine Use: rarely - Living Situation & Occupation Living situation: Reports: Occupation: Retired ED ROS GENERAL - Review of Systems Review Of Systems: See Below Constitutional: Reports: Fever, Malaise HEENT: Reports: No Symptoms Respiratory: Reports: Shortness of Breath, Cough, Sputum Cardiovascular: Reports: Other (left lower chest pressure) Endocrine: Reports: No Symptoms GI/Abdominal: Reports: No Symptoms : Reports: No Symptoms Musculoskeletal: Reports: No Symptoms Skin: Reports: No Symptoms Neurological: Reports: No Symptoms Psychiatric: Reports: No Symptoms ED EXAM, GENERAL - Physical Exam Exam: See Below Exam Limited By: No Limitations General Appearance: Alert, Mild Distress Respiratory/Chest: No Respiratory Distress, Chest Non-Tender, Decreased Breath Sounds, Rhonchi (lower lobes ) Cardiovascular: Regular Rate, Rhythm, No Gallop, No Murmur, No Rub Neurological: Alert, Oriented, Normal Cognition Psychiatric: Normal Affect, Normal Mood Skin Exam: Warm, Dry, Intact, Normal Color, No Rash Course - Vital Signs Last Recorded V/S: Last Vital Signs Temp 100.2 F 06/24/19 10:02 Pulse 90 06/24/19 10:02 Resp 24 H 06/24/19 10:02 BP 137/75 06/24/19 10:02 Pulse Ox 91 L 06/24/19 10:09 - Orders/Labs/Meds Orders: Active Orders 24 hr Category Date Time Status Cardiac Monitoring [RC] . DIRECTED Care 06/24/19 10:29 Active EKG Documentation Completion [RC] ASDIRECTED Care 06/24/19 10:26 Active Oxygen Therapy [RC] PRN Care 06/24/19 10:29 Active Peripheral IV Care [RC] . DIRECTED Care 06/24/19 10:30 Active C-REACTIVE PROTEIN [CHEM] Stat Lab 06/24/19 10:50 Results COMPREHENSIVE METABOLIC PN,CMP [CHEM] Stat Lab 06/24/19 10:50 Results CULTURE BLOOD [BC] Stat Lab 06/24/19 10:50 Received CULTURE BLOOD [BC] Stat Lab 06/24/19 11:05 Received MYCOPLASMA PNEUMONIAE IGM AB [CHEM] Stat Lab 06/24/19 10:50 Results RESPIRATORY SYNCYTIAL VIRUS AG [RM] Stat Lab 06/24/19 12:56 Ordered TROPONIN I [CHEM] Stat Lab 06/24/19 10:50 Results Sodium Chloride 0.9% [Saline Flush] Med 06/24/19 10:28 Active 10 ml FLUSH ASDIRECTED PRN Blood Culture x2 Reflex Set [OM.PC] Stat Oth 06/24/19 10:30 Ordered Peripheral IV Insertion Adult [OM.PC] Stat Oth 06/24/19 10:28 Ordered EKG 12 Lead [EK] Stat Ther 06/24/19 10:24 Ordered Medication Orders Sodium Chloride (Saline Flush) 10 ml FLUSH ASDIRECTED PRN PRN Reason: Keep Vein Open Last Admin: 06/24/19 11:12 Dose: 10 ml Labs: Laboratory Tests 06/24/19 06/24/19 06/24/19 Range/Units 10:50 10:50 10:50 WBC 27.10 H (4.23-9.07) K/mm3 RBC 4.09 L (4.63-6.08) M/mm3 Hgb 9.8 L (13.7-17.5) gm/dl Hct 32.6 L (40.1-51.0) % MCV 79.7 (79.0-92.2) fl MCH 24.0 L (25.7-32.2) pg MCHC 30.1 L (32.2-35.5) g/dl RDW Std Deviation 57.5 H (35.1-43.9) fL Plt Count 456 H D (163-337) K/mm3 MPV 9.0 L (9.4-12.3) fl Neut % (Auto) 83.5 H (34.0-67.9) % Lymph % (Auto) 5.8 L (21.8-53.1) % [place] % (Auto) 9.7 (5.3-12.2) % Eos % (Auto) 0.1 L (0.8-7.0) Baso % (Auto) 0.3 (0.1-1.2) % Neut # (Auto) 22.64 H (1.78-5.38) K/mm3 Lymph # (Auto) 1.56 (1.32-3.57) K/mm3 [place] # (Auto) 2.64 H (0.30-0.82) K/mm3 Eos # (Auto) 0.02 L (0.04-0.54) K/mm3 Baso # (Auto) 0.07 (0.01-0.08) K/mm3 Manual Slide Review Abnormal smear Sodium 139 (136-145) mEq/L Potassium 3.8 (3.5-5.1) mEq/L Chloride 101 (98-107) mEq/L Carbon Dioxide 30 (21-32) mEq/L Anion Gap 11.8 (5-15) BUN 12 (7-18) mg/dL Creatinine 1.0 (0.7-1.3) mg/dL Est Cr Clr Drug Dosing 68.50 mL/min Estimated GFR (MDRD) > 60 (>60) mL/min BUN/Creatinine Ratio 12.0 L (14-18) Glucose 120 H (83-115) mg/dL Lactic Acid 0.9 (0.4-2.0) mmol/L Calcium 8.7 (8.5-10.1) mg/dL Total Bilirubin 0.7 (0.2-1.0) mg/dL AST 14 L (15-37) U/L ALT 16 (16-63) U/L Alkaline Phosphatase 100 (46-116) U/L Troponin I < 0.017 (0.00-0.056) ng/mL C-Reactive Protein 17.4 H* (<1.0) mg/dL Total Protein 6.2 L (6.4-8.2) g/dl Albumin 2.6 L (3.4-5.0) g/dl Globulin 3.6 gm/dL Albumin/Globulin Ratio 0.7 L (1-2) Meds: Medications Generic Name Dose Route Start Last Admin Trade Name Freq PRN Reason Stop Dose Admin Sodium Chloride 10 ml 06/24/19 10:28 06/24/19 11:12 Saline Flush FLUSH 10 ml ASDIRECTED PRN Administration Keep Vein Open Discontinued Medications Generic Name Dose Route Start Last Admin Trade Name Freq PRN Reason Stop Dose Admin Diphenhydramine HCl 50 mg 06/24/19 10:12 06/24/19 10:27 Benadryl IVPUSH 06/24/19 10:13 Not Given ONETIME ONE Ceftriaxone Sodium 2 gm/ 100 mls @ 200 mls/hr 06/24/19 10:32 06/24/19 11:10 Sodium Chloride IV 06/24/19 11:01 200 mls/hr ONETIME ONE Administration Departure - Departure Disposition: DC/Tfer to [facility] Clinical Impression: Pneumonia Qualifiers: Pneumonia type: due to unspecified organism Laterality: bilateral Lung location : lower lobe of lung Qualified Code(s): J18.9 - Pneumonia, unspecified organism - Discharge Information Referrals: Ki Obrien MD [Primary Care Provider] - Forms: ED Department Discharge Sepsis Event Note - Evaluation Sepsis Screening Result: Possible Sepsis Risk - Focused Exam Vital Signs: Vital Signs Temp Pulse Resp BP Pulse Ox Pulse Ox 06/24/19 10:09 91 L 06/24/19 10:02 100.2 F 90 24 H 137/75 80 L Date Exam was Performed: 06/24/19 Time Exam was Performed: 11:26 - My Orders Last 24 Hours: My Active Orders 06/24/19 10:24 EKG 12 Lead [EK] Stat 06/24/19 10:26 EKG Documentation Completion [RC] ASDIRECTED 06/24/19 10:28 Sodium Chloride 0.9% [Saline Flush] 10 ml FLUSH ASDIRECTED PRN Peripheral IV Insertion Adult [OM.PC] Stat 06/24/19 10:29 Cardiac Monitoring [RC] . DIRECTED Oxygen Therapy [RC] PRN 06/24/19 10:30 Peripheral IV Care [RC] . DIRECTED Blood Culture x2 Reflex Set [OM.PC] Stat 06/24/19 10:50 C-REACTIVE PROTEIN [CHEM] Stat COMPREHENSIVE METABOLIC PN,CMP [CHEM] Stat CULTURE BLOOD [BC] Stat MYCOPLASMA PNEUMONIAE IGM AB [CHEM] Stat TROPONIN I [CHEM] Stat 06/24/19 11:05 CULTURE BLOOD [BC] Stat 06/24/19 12:56 RESPIRATORY SYNCYTIAL VIRUS AG [RM] Stat - Assessment/Plan Last 24 Hours: My Active Orders 06/24/19 10:24 EKG 12 Lead [EK] Stat 06/24/19 10:26 EKG Documentation Completion [RC] ASDIRECTED 06/24/19 10:28 Sodium Chloride 0.9% [Saline Flush] 10 ml FLUSH ASDIRECTED PRN Peripheral IV Insertion Adult [OM.PC] Stat 06/24/19 10:29 Cardiac Monitoring [RC] . DIRECTED Oxygen Therapy [RC] PRN 06/24/19 10:30 Peripheral IV Care [RC] . DIRECTED Blood Culture x2 Reflex Set [OM.PC] Stat 06/24/19 10:50 C-REACTIVE PROTEIN [CHEM] Stat COMPREHENSIVE METABOLIC PN,CMP [CHEM] Stat CULTURE BLOOD [BC] Stat MYCOPLASMA PNEUMONIAE IGM AB [CHEM] Stat TROPONIN I [CHEM] Stat 06/24/19 11:05 CULTURE BLOOD [BC] Stat 06/24/19 12:56 RESPIRATORY SYNCYTIAL VIRUS AG [RM] Stat <Espinoza Greene A - Last Filed: 06/24/19 13:06> EKG INTERPRETATION EKG Date: 06/24/19 Time: 10:18 Rhythm: NSR Rate (Beats/Min): 84 [place]: Normal P-Wave: Present QRS: RBBB ST-T: Normal QT: Normal Course - Re-Assessments/Exams Free Text/Narrative Re-Assessment/Exam: 06/24/19 12:51 I examined the patient myself and I agree with [facility]'s assessment and plan. I ordered an IV saline lock, oxygen, chest CT, labs, blood cultures and lactic acid and rocephin 2 grams IV. His WBC was elevated at 27.1. His Hgb was low at 9.8. His platelets were elevated at 456. His lactic acid was normal at 0.9. His CRP was elevated at 17.14. His CT shows diffuse interstitial change becoming more confluent within the left base. Differential includes usual pneumonia as well as viral pneumonia as well as opportunistic etiologies such as fungal and atypical bacteria. Other findings as noted above believed to be incidental and nonacute. I feel he needs to be admitted. I feel he would be more appropriate to go to [place]. I called [facility] in [place] and talked with Dr Stallings and he agreed to the admission. Departure - Departure Time of Disposition: 13:05 Condition: Fair Sepsis Event Note - Focused Exam Date Exam was Performed: 06/24/19 Time Exam was Performed: 12:59
--- NOTE | 2019-06-24 12:45 | CT ---
CT chest Technique: Multiple axial sections were obtained from above the lung apices inferiorly through the lung bases. Intravenous contrast was not utilized. Comparison: Prior chest x-ray of 06/14/19. Diffuse interstitial change noted within both inferior upper lungs as well as diffusely through both lower lungs with more consolidation within the left base. No pleural effusions are seen. Mediastinum and hilar regions show no adenopathy. Left-sided infusion port is seen. No mediastinal adenopathy is seen. Aorta shows atherosclerotic change without aneurysm. Coronary artery calcification is noted. Impression: 1. Diffuse interstitial change becoming more confluent within the left base. Differential includes usual pneumonia as well as viral pneumonia as well as opportunistic etiologies such as fungal and atypical bacteria. 2. Other findings as noted above believed to be incidental and nonacute. Diagnostic code #5 This report was dictated in [place] Standard Time
== END 2019-06-24 14:30 ==
LOC: JD.ED 09:44
DX: J18.9 Pneumonia, unspecified organism (principal); Z88.0 Allergy status to penicillin; Z88.2 Allergy status to sulfonamides; Z91.041 Radiographic dye allergy status; Z88.8 Allergy status to other drugs, medicaments and biological substances; Z79.82 Long term (current) use of aspirin; Z79.899 Other long term (current) drug therapy
CPT/HCPCS: 36415; 71250; 80053; 83605; 84484; 85025; 86140; 86738; 87040; 87070; 87077; 87184; 87205; 87804; 87807; 93005; 99285; J0696; J7050; 93010; 99284